=== PATIENT | male | born 1965 | race Caucasian/White ===

== ENCOUNTER 2017-01-24 17:26 | Emergency (ER) | payer OTHER ==
[2017-01-24] MEDS ORDERED: Haloperidol INJ IV/IM* 5 MG/ML AMP IM ONE (17:48)
[2017-01-24] MEDS ORDERED: diPHENhydraMINE IV* 50 MG/ML 1 ml VIAL (BENADRYL) IM ONE (17:49)
[2017-01-24] MEDS ORDERED: LORazepam INJ* 2 MG/ML 1 ML VIAL IV PUSH ONE (17:49)
[2017-01-24] MEDS ORDERED: Haloperidol INJ IV/IM* 5 MG/ML AMP ONE (17:50)
[2017-01-24] MEDS ORDERED: diPHENhydraMINE IV* 50 MG/ML 1 ml VIAL (BENADRYL) ONE (17:50)
[2017-01-24] MEDS ORDERED: LORazepam INJ* 2 MG/ML 1 ML VIAL ONE (17:50)
[2017-01-24 18:29] LABS: Hematocrit 45 % (42-52); Mean Corpuscular HGB Conc 34 g/dl (31-36); Mean Corpuscular Hemoglobin 30 pg (27-31); Mean Corpuscular Volume 90 fL (80-94); Mean Platelet Volume 7 um3 (7.4-10.4); Red Blood Count 4.97 10^6/ul (4.0-5.4); Red Cell Distribution Width 14 % (10.5-15); White Blood Count 11.5 10^3/ul (3.5-10.8)
[2017-01-24 18:42] LABS: ALT 13 U/L (7-52); AST 18 U/L (13-39); Albumin 4.4 g/dL (3.2-5.2); Alkaline Phosphatase 45 U/L (34-104); Anion Gap 13 mmol/L (2-11); BUN/Creatinine Ratio 9.8 (8-20); Blood Urea Nitrogen 13 mg/dL (6-24); CO2 Carbon Dioxide 22 mmol/L (22-32); Calcium 9.2 mg/dL (8.6-10.3); Chloride 101 mmol/L (101-111); EGFR African American 73.2 (>60); EGFR Non-African American 56.9 (>60); Globulin 2.8 g/dL (2-4); Glucose 120 mg/dL (70-100); Potassium 3.4 mmol/L (3.5-5.0); Sodium 136 mmol/L (133-145); Total Protein 7.2 g/dL (6.4-8.9)
[2017-01-24 19:05] LABS: Acetaminophen < 15 mcg/mL; Alcohol 350 mg/dL (<10); Salicylate < 2.50 mg/dL (<30)
[2017-01-24 19:15] LABS: TSH (Thyroid Stimulating Horm) 1.96 mcIU/mL (0.34-5.60)
[2017-01-24] MEDS: NS 0.9% 1000 ML* 2,000 ML IV ONE ×2 (19:36→22:16)
[2017-01-24 21:22] LABS: Urine Bacteria Absent (Absent); Urine Bilirubin Negative (Negative); Urine Glucose Negative (Negative); Urine Nitrite Negative (Negative)
[2017-01-24 21:32] LABS: Benzodiazepine Urine Screen None Detected (None Detect)
--- NOTE | 2017-01-24 22:48 | ED ---
Chikis Richardson Michael, scribed for Danny Elliott MD on 01/24/17 at 1757 . Altered Mental Status - HPI Summary HPI Summary: 51 y/o male was brought to the ED by police on 2208 for disorderly conduct in a store today. Per police report, since the recent of the pt's mother, his emotions have varied from anger and sadness. Pt states he has significant mental health hx and stated vague references to SI. Pt reports he wants a MHE per police report. Upon consultation with pt, he was aggressive and noncompliant. - History Of Current Complaint Chief Complaint: EDSubstanceAbuse Stated Complaint: MHE Time Seen by Provider: 01/24/17 17:41 Hx Obtained From: EMS, Medical Records, Other: - police report Onset/Duration: Still Present Timing: Constant Severity Initially: Moderate Severity Currently: Moderate Character: Agitation - aggressive Aggravating Factor(s): Other - mother's Alleviating Factor(s): Nothing Associated Signs And Symptoms: Negative: Negative - aggression/agitation. - Allergies/Home Medications Allergies/Adverse Reactions: Allergies Allergy/AdvReac Type Severity Reaction Status Date / Time Lovastatin Allergy Unknown Rhabdomyoly Verified 12/19/15 17:46 sis Horse-derived Products Allergy Unknown Verified 12/19/15 17:46 Reaction Details Lactase Allergy Nausea And Verified 03/31/16 15:14 Vomiting Milk-related Compounds Allergy See Comment Verified 12/23/15 17:33 PMH/Surg Hx/FS Hx/Imm Hx Endocrine/Hematology History: Reports: Hx Thyroid Disease Denies: Hx Diabetes Cardiovascular History: Reports: Hx Hypercholesterolemia, Hx Hypertension - ON MEDICATION FOR Denies: Hx Pacemaker/ICD GI History: Reports: Hx Gastroesophageal Reflux Disease, Hx Irritable Bowel History: Reports: Hx Acute Renal Failure, Other Problems/Disorders - Pt states "kidneys have shut down before" Denies: Hx Renal Disease Musculoskeletal History: Reports: Hx Arthritis - OSTEOARTHRITIS, Hx Back Problems - PT ON CHRONIC DISABILITY DUE TO CHRONIC BACK/PAIN ISSUES, Hx Orthopedic Injury, Hx Tendonitis, Other Musculoskeletal History - HERNIA REPAIR Sensory History: Reports: Hx Contacts or Glasses Denies: Hx Hearing Aid Opthamlomology History: Reports: Hx Contacts or Glasses Neurological History: Reports: Hx Headaches, Hx Nerve Disease - on NEURONTIN, Hx Seizures, Other Neuro Impairments/Disorders Psychiatric History: Reports: Hx Anxiety, Hx Depression, Hx Inpatient Treatment , Hx Community Mental Health Tx, Hx Suicide Attempt - "Pt states overdosing and trying to cut himself", Hx of Violent Episodes Against Others, Hx Substance Abuse, Other Psychiatric Issues/Disorders - Hx of hurting himself "with pushpins " Denies: Hx Eating Disorder, Hx Panic Disorder - Surgical History Surgery Procedure, Year, and Place: Hernia repair Hx Anesthesia Reactions: No - Immunization History Date of Tetanus Vaccine: unknown Infectious Disease History: No Infectious Disease History: Reports: Hx of Known/Suspected MRSA Denies: Traveled Outside the [place] in Last 30 Days - Family History Family History: FHx of depression - Mother. FHx of alcohol abuse - paternal aunt - Social History Occupation: Unemployed Lives: With Family Alcohol Use: Other Alcohol Amount: currently intoxicated Hx Substance Use: Yes - Presribed narcotics Substance Use Type: Reports: Cocaine, Sedatives Substance Use Comment - Amount & Last Used: Previous hx of cocaine and IV drugs Hx Tobacco Use: Yes Smoking Status (MU): Current Every Day Smoker Type: Cigarettes Amount Used/How Often: 1/2 PPD Length of Time of Smoking/Using Tobacco: 30YRS Have You Smoked in the Last Year: Yes Review of Systems Negative: Fever Positive: Other - aggressive All Other Systems Reviewed And Are Negative: Yes Physical Exam Triage Information Reviewed: Yes Vital Signs On Initial Exam: Initial Vitals Temp Pulse Resp BP Pulse Ox 98.4 F 123 18 95/58 96 01/24/17 17:40 01/24/17 17:40 01/24/17 17:40 01/24/17 17:40 01/24/17 17:40 Vital Signs Reviewed: Yes Skin: Positive: Warm, Skin Color Reflects Adequate Perfusion Head/Face: Positive: Normal Head/Face Inspection Eyes: Positive: Normal, EOMI ENT: Positive: Normal ENT inspection Neck: Positive: Supple, Nontender Respiratory/Lung Sounds: Positive: Clear to Auscultation, Breath Sounds Present Cardiovascular: Positive: Normal, RRR. Negative: Murmur Abdomen Description: Positive: Nontender Musculoskeletal: Positive: Normal Neurological: Positive: Normal, Sensory/Motor Intact, Alert, Oriented to Person Place, Time, CN Intact II-III Psychiatric: Positive: Other - beligerant and angry and hostile, threatening. Diagnostics - Vital Signs Vital Signs Temp Pulse Resp BP Pulse Ox 01/24/17 17:40 98.4 F 123 18 95/58 96 - Laboratory Lab Results: Lab Results 01/24/17 01/24/17 Range/Units 18:15 18:15 WBC 11.5 H (3.5-10.8) 10^3/ul RBC 4.97 (4.0-5.4) 10^6/ul Hgb 15.0 (14.0-18.0) g/dl Hct 45 (42-52) % MCV 90 (80-94) fL MCH 30 (27-31) pg MCHC 34 (31-36) g/dl RDW 14 (10.5-15) % Plt Count 308 (150-450) 10^3/ul MPV 7 L (7.4-10.4) um3 Neut % (Auto) 61.7 (38-83) % Lymph % (Auto) 28.4 (25-47) % [place] % (Auto) 7.4 (1-9) % Eos % (Auto) 1.4 (0-6) % Baso % (Auto) 1.1 (0-2) % Absolute Neuts (auto) 7.1 (1.5-7.7) 10^3/ul Absolute Lymphs (auto) 3.3 (1.0-4.8) 10^3/ul Absolute Monos (auto) 0.9 H (0-0.8) 10^3/ul Absolute Eos (auto) 0.2 (0-0.6) 10^3/ul Absolute Basos (auto) 0.1 (0-0.2) 10^3/ul Absolute Nucleated RBC 0.01 10^3/ul Nucleated RBC % 0.1 Sodium 136 (133-145) mmol/L Potassium 3.4 L (3.5-5.0) mmol/L Chloride 101 (101-111) mmol/L Carbon Dioxide 22 (22-32) mmol/L Anion Gap 13 H (2-11) mmol/L BUN 13 (6-24) mg/dL Creatinine 1.33 H (0.67-1.17) mg/dL Est GFR ( Amer) 73.2 (>60) Est GFR (Non-Af Amer) 56.9 (>60) BUN/Creatinine Ratio 9.8 (8-20) Glucose 120 H (70-100) mg/dL Calcium 9.2 (8.6-10.3) mg/dL Total Bilirubin 0.40 (0.2-1.0) mg/dL AST 18 (13-39) U/L ALT 13 (7-52) U/L Alkaline Phosphatase 45 (34-104) U/L Total Protein 7.2 (6.4-8.9) g/dL Albumin 4.4 (3.2-5.2) g/dL Globulin 2.8 (2-4) g/dL Albumin/Globulin Ratio 1.6 (1-3) TSH 1.96 (0.34-5.60) mcIU/mL Salicylates < 2.50 (<30) mg/dL Acetaminophen < 15 mcg/mL Serum Alcohol 350 H (<10) mg/dL Result Diagrams: 01/24/17 18:15 01/24/17 18:15 Lab Statement: Any lab studies that have been ordered have been reviewed, and results considered in the medical decision making process. - EKG EKG 2036 EKG Rhythm: Sinus Rhythm - 91 bpm EKG Interpretation: no stemi Re-Evaluation - Re-Evaluation First Eval Re-Evaluation Time: 19:00 Change: Improved - resting comfortably, with sats in the mid 90s. will hydrate , and get urine on him. His BP is a little low, but he has etoh aboard and was sedated due to danger to self and others. Will get EKG and urine done now that he is sedated. Second Eval Re-Evaluation Time: 22:46 Change: Improved Comment: walked to bathroom, and cooperative. BP stable Altered Mental Statu Course/Dx - Course Course Of Treatment: 51 yr old male intoxicated. He was very hositle and per police expressed suicidal ideation. He was sedated and four pointed. He is clear for MHE. - Diagnoses Discharge Diagnoses: Alcohol intoxication, Suicidal ideation Discharge - Discharge Plan Condition: Good Disposition: OTHER Discharge Disposition Comment: awaits psych eval, and sobering up. Sign out Dr Dial at 2300. The documentation as recorded by the Chikis crawford Michael accurately reflects the service I personally performed and the decisions made by me, Danny Elliott MD.
[2017-01-25 02:36] VITALS: BP 108/76
[2017-01-25] MEDS ORDERED: Nicotine Inhaler* 10 MG AMP ONE (05:57)
[2017-01-25] MEDS ORDERED: Mouth Piece, Nicotine* 1 EACH CARTRIDGE ONE (05:57)
[2017-01-25] MEDS ORDERED: levETIRAcetam TAB* 500 MG PO ONE (06:09)
== END 2017-01-25 08:05 | disposition home or self-care (01) ==
LOC: ED 17:26
DX: R45.851 Suicidal ideations (principal); F10.129 Alcohol abuse with intoxication, unspecified; Z88.6 Allergy status to analgesic agent; I10 Essential (primary) hypertension; E78.00 Pure hypercholesterolemia, unspecified; F17.290 Nicotine dependence, other tobacco product, uncomplicated
CPT/HCPCS: 36415; 80053; 80307; 80320; 80329; 81003; 81015; 84443; 85025; 93005; 99285; A9270-GY; G0480; J1200; J1630; J2060

== ENCOUNTER 2017-01-27 02:17 | Emergency (ER) | payer OTHER ==
[2017-01-27 03:12] LABS: Hematocrit 44 % (42-52); Hemoglobin 14.7 g/dl (14.0-18.0); Mean Corpuscular HGB Conc 34 g/dl (31-36); Mean Corpuscular Hemoglobin 30 pg (27-31); Mean Corpuscular Volume 90 fL (80-94); Mean Platelet Volume 7 um3 (7.4-10.4); Red Blood Count 4.86 10^6/ul (4.0-5.4); Red Cell Distribution Width 14 % (10.5-15); White Blood Count 8.2 10^3/ul (3.5-10.8)
[2017-01-27 03:24] LABS: Albumin 4.1 g/dL (3.2-5.2); BUN/Creatinine Ratio 7.1 (8-20); Calcium 9.1 mg/dL (8.6-10.3); EGFR African American 122.7 (>60); EGFR Non-African American 95.4 (>60); Globulin 2.6 g/dL (2-4); Potassium 3.7 mmol/L (3.5-5.0); Total Bilirubin 0.9 mg/dL (0.2-1.0); Total Protein 6.7 g/dL (6.4-8.9)
[2017-01-27 04:18] VITALS: BP 161/96
--- NOTE | 2017-01-27 04:45 | ED ---
Luiz Richardson Adam, scribed for Leander Harris MD on 01/27/17 at 0241 . Neurological HPI - HPI Summary HPI Summary: Pt is a 51 year old male presenting after a seizure. He does not remember where he was when the seizure set on and he does not remember any details from before , during, or after the seizure. He denies any evidence of tongue biting or urinary incontinence. He currently feels tired and hot. He denies CP, SOB, fever , and chills. He has a hx of seizures and takes Keppra. He does not remember when his last seizure was prior to tonight. Positive tobacco hx. - History of Current Complaint Chief Complaint: EDSeizure Stated Complaint: SEIZURES Hx Obtained From: Patient Onset/Duration: Sudden Onset, Started hours ago, Resolved Timing: Intermittent Episodes Lasting: - 1 seizure lasting unknown amount of time Current Severity: None Seizure Severity: Moderate Number of Seizures: 1 Pain Intensity: 0 Aggravating: Unknown Alleviating: Spontanious Resolution Associated Signs and Symptoms: Positive: Memory Loss - Fatigue, feeling hot. Negative: Fever, Chest Pain, Shortness of Breath Related Hx: Seizure - Additional Pertinent History Primary Care Physician: [id number] - Allergy/Home Medications Allergies/Adverse Reactions: Allergies Allergy/AdvReac Type Severity Reaction Status Date / Time Lovastatin Allergy Unknown Rhabdomyoly Verified 12/19/15 17:46 sis Horse-derived Products Allergy Unknown Verified 12/19/15 17:46 Reaction Details Lactase Allergy Nausea And Verified 03/31/16 15:14 Vomiting Milk-related Compounds Allergy See Comment Verified 12/23/15 17:33 PMH/Surg Hx/FS Hx/Imm Hx Endocrine/Hematology History: Reports: Hx Thyroid Disease Denies: Hx Diabetes Cardiovascular History: Reports: Hx Hypercholesterolemia, Hx Hypertension - ON MEDICATION FOR Denies: Hx Pacemaker/ICD GI History: Reports: Hx Gastroesophageal Reflux Disease, Hx Irritable Bowel History: Reports: Hx Acute Renal Failure, Other Problems/Disorders - Pt states "kidneys have shut down before" Denies: Hx Renal Disease Musculoskeletal History: Reports: Hx Arthritis - OSTEOARTHRITIS, Hx Back Problems - PT ON CHRONIC DISABILITY DUE TO CHRONIC BACK/PAIN ISSUES, Hx Orthopedic Injury, Hx Tendonitis, Other Musculoskeletal History - HERNIA REPAIR Sensory History: Reports: Hx Contacts or Glasses Denies: Hx Hearing Aid Opthamlomology History: Reports: Hx Contacts or Glasses Neurological History: Reports: Hx Headaches, Hx Nerve Disease - on NEURONTIN, Hx Seizures, Other Neuro Impairments/Disorders Psychiatric History: Reports: Hx Anxiety, Hx Depression, Hx Inpatient Treatment , Hx Community Mental Health Tx, Hx Suicide Attempt - "Pt states overdosing and trying to cut himself", Hx of Violent Episodes Against Others, Hx Substance Abuse, Other Psychiatric Issues/Disorders - Hx of hurting himself "with pushpins " Denies: Hx Eating Disorder, Hx Panic Disorder - Surgical History Surgery Procedure, Year, and Place: Hernia repair Hx Anesthesia Reactions: No - Immunization History Date of Tetanus Vaccine: unknown Infectious Disease History: No Infectious Disease History: Reports: Hx of Known/Suspected MRSA Denies: Traveled Outside the [place] in Last 30 Days - Family History Known Family History: Positive: Other - FHx of depression - Mother - Social History Occupation: Unemployed Lives: With Family - Female friend Alcohol Use: Occasionally Hx Substance Use: Yes - Presribed narcotics Substance Use Type: Reports: Cocaine, Sedatives Substance Use Comment - Amount & Last Used: Previous hx of cocaine and IV drugs Hx Tobacco Use: Yes Smoking Status (MU): Current Every Day Smoker Type: Cigarettes Amount Used/How Often: 1/2 PPD Length of Time of Smoking/Using Tobacco: 30YRS Have You Smoked in the Last Year: Yes Review of Systems Positive: Fatigue, Other - Feels hot. Negative: Fever, Chills Negative: Chest Pain Negative: Shortness Of Breath Negative: incontinence Skin: Negative Neurological: Other - Seizure All Other Systems Reviewed And Are Negative: Yes Physical Exam - Summary Physical Exam Summary: The patient is well-nourished in no acute distress and in no acute pain. The skin is warm and dry and skin color reflects adequate perfusion. HEENT: The head is normocephalic and atraumatic. No evidence of skull fracture. The pupils are equal and reactive. The conjunctivae are clear and without drainage. Nares are patent and without drainage. Mouth reveals moist mucous membranes and the throat is without erythema and exudate. The external ears are intact. The ear canals are patent and without drainage. The tympanic membranes are intact. No hemotympanum. Neck is supple with full range of motion and non-tender. There are no carotid bruits. There is no neck vein distension. Respiratory: Chest is non-tender. Lungs are clear to auscultation and breath sounds are symmetrical and equal. Cardiovascular: Heart is regular rate and rhythm. There is no murmur or rub auscultated. There is no peripheral edema and pulses are symmetrical and equal. Abdomen: The abdomen is soft and non-tender. There are normal bowel sounds heard in all four quadrants and there is no organomegaly palpated. Musculoskeletal: There is no back pain noted. Extremities are non-tender with full range of motion. There is good capillary refill. There is no peripheral edema or calf tenderness elicited. Neurological: Patient is alert and oriented to person, place and time. The patient has symmetrical motor strength in all four extremities. Cranial nerves are grossly intact. Deep tendon reflexes are symmetrical and equal in all four extremities. Psychiatric: The patient has an appropriate affect and does not exhibit any anxiety or depression. Triage Information Reviewed: Yes Vital Signs On Initial Exam: Initial Vitals Temp Pulse Resp BP Pulse Ox 98.5 F 98 21 147/96 97 01/27/17 02:33 01/27/17 02:33 01/27/17 02:33 01/27/17 02:33 01/27/17 02:33 Vital Signs Reviewed: Yes Diagnostics - Vital Signs Vital Signs Temp Pulse Resp BP Pulse Ox 01/27/17 02:34 98.5 F 98 21 147/96 97 01/27/17 02:33 98.5 F 98 21 147/96 97 - Laboratory Lab Results: Lab Results 01/27/17 01/27/17 01/27/17 Range/Units 02:30 02:30 02:30 WBC 8.2 (3.5-10.8) 10^3/ul RBC 4.86 (4.0-5.4) 10^6/ul Hgb 14.7 (14.0-18.0) g/dl Hct 44 (42-52) % MCV 90 (80-94) fL MCH 30 (27-31) pg MCHC 34 (31-36) g/dl RDW 14 (10.5-15) % Plt Count 252 (150-450) 10^3/ul MPV 7 L (7.4-10.4) um3 Neut % (Auto) 65.6 (38-83) % Lymph % (Auto) 22.0 L (25-47) % [place] % (Auto) 7.9 (1-9) % Eos % (Auto) 3.7 (0-6) % Baso % (Auto) 0.8 (0-2) % Absolute Neuts (auto) 5.4 (1.5-7.7) 10^3/ul Absolute Lymphs (auto) 1.8 (1.0-4.8) 10^3/ul Absolute Monos (auto) 0.6 (0-0.8) 10^3/ul Absolute Eos (auto) 0.3 (0-0.6) 10^3/ul Absolute Basos (auto) 0.1 (0-0.2) 10^3/ul Absolute Nucleated RBC 0.01 10^3/ul Nucleated RBC % 0.1 INR (Anticoag Therapy) 0.92 (0.89-1.11) Sodium 138 (133-145) mmol/L Potassium 3.7 (3.5-5.0) mmol/L Chloride 106 (101-111) mmol/L Carbon Dioxide 21 L (22-32) mmol/L Anion Gap 11 (2-11) mmol/L BUN 6 (6-24) mg/dL Creatinine 0.85 (0.67-1.17) mg/dL Est GFR ( Amer) 122.7 (>60) Est GFR (Non-Af Amer) 95.4 (>60) BUN/Creatinine Ratio 7.1 L (8-20) Glucose 132 H (70-100) mg/dL Lactic Acid (0.5-2.0) mmol/L Calcium 9.1 (8.6-10.3) mg/dL Magnesium 2.0 (1.9-2.7) mg/dL Total Bilirubin 0.90 (0.2-1.0) mg/dL AST 27 (13-39) U/L ALT 17 (7-52) U/L Alkaline Phosphatase 52 (34-104) U/L Total Protein 6.7 (6.4-8.9) g/dL Albumin 4.1 (3.2-5.2) g/dL Globulin 2.6 (2-4) g/dL Albumin/Globulin Ratio 1.6 (1-3) 01/27/17 Range/Units 02:30 WBC (3.5-10.8) 10^3/ul RBC (4.0-5.4) 10^6/ul Hgb (14.0-18.0) g/dl Hct (42-52) % MCV (80-94) fL MCH (27-31) pg MCHC (31-36) g/dl RDW (10.5-15) % Plt Count (150-450) 10^3/ul MPV (7.4-10.4) um3 Neut % (Auto) (38-83) % Lymph % (Auto) (25-47) % [place] % (Auto) (1-9) % Eos % (Auto) (0-6) % Baso % (Auto) (0-2) % Absolute Neuts (auto) (1.5-7.7) 10^3/ul Absolute Lymphs (auto) (1.0-4.8) 10^3/ul Absolute Monos (auto) (0-0.8) 10^3/ul Absolute Eos (auto) (0-0.6) 10^3/ul Absolute Basos (auto) (0-0.2) 10^3/ul Absolute Nucleated RBC 10^3/ul Nucleated RBC % INR (Anticoag Therapy) (0.89-1.11) Sodium (133-145) mmol/L Potassium (3.5-5.0) mmol/L Chloride (101-111) mmol/L Carbon Dioxide (22-32) mmol/L Anion Gap (2-11) mmol/L BUN (6-24) mg/dL Creatinine (0.67-1.17) mg/dL Est GFR ( Amer) (>60) Est GFR (Non-Af Amer) (>60) BUN/Creatinine Ratio (8-20) Glucose (70-100) mg/dL Lactic Acid 5.8 H* (0.5-2.0) mmol/L Calcium (8.6-10.3) mg/dL Magnesium (1.9-2.7) mg/dL Total Bilirubin (0.2-1.0) mg/dL AST (13-39) U/L ALT (7-52) U/L Alkaline Phosphatase (34-104) U/L Total Protein (6.4-8.9) g/dL Albumin (3.2-5.2) g/dL Globulin (2-4) g/dL Albumin/Globulin Ratio (1-3) Result Diagrams: 01/27/17 02:30 01/27/17 02:30 Lab Statement: Any lab studies that have been ordered have been reviewed, and results considered in the medical decision making process. - EKG 02:24 Cardiac Rate: Tachycardia - 106 BPM EKG Rhythm: Sinus Tachycardia ST Segment: Normal EKG Interpretation: Normal axis - Additional Comments Diagnostic Additional Comments: Lactic Acid - 5.8 Course/Dx - Course Course Of Treatment: Elevated lactate and low CO2 most likely correlate with seizure. Pt has no complaints. He is tired and wants to go home. He has been instructed to continue with his current medications and follow up with Dr. Collins. - Differential Dx Differential Diagnoses Neuro: Positive: Hypoglycemia, Postical, Seizure Disorder - Diagnoses Provider Diagnoses: Syncope, Seizure disorder Discharge - Discharge Plan Condition: Stable Disposition: HOME Patient Education Materials: Syncope (ED), Recurrent Seizures in Adults (ED) Referrals: Carlos Collins MD [Primary Care Provider] - Additional Instructions: Continue with your current medications and follow up with Dr. Collins. The documentation as recorded by the Luiz crawford Adam accurately reflects the service I personally performed and the decisions made by me, Leander Harris MD.
== END 2017-01-27 04:19 | disposition home or self-care (01) ==
LOC: ED 02:17
DX: R55 Syncope and collapse (principal); G40.909 Epilepsy, unspecified, not intractable, without status epilepticus; R53.83 Other fatigue; R41.3 Other amnesia; F17.210 Nicotine dependence, cigarettes, uncomplicated
CPT/HCPCS: 36415; 80053; 80177; 83605; 83735; 85025; 85610; 99283

== ENCOUNTER → 2017-02-19 21:48 | Emergency (ER) | payer OTHER ==
[~2017-02-19 21:48] MED LIST: Haloperidol INJ IV/IM* 5 MG/ML AMP IM ONE; LORazepam INJ* 2 MG/ML 1 ML VIAL IM ONE; diPHENhydraMINE IV* 50 MG/ML 1 ml VIAL (BENADRYL) IM ONE
[2017-02-19 22:23] LABS: Hematocrit 45 % (42-52); Mean Corpuscular HGB Conc 34 g/dl (31-36); Mean Corpuscular Hemoglobin 30 pg (27-31); Mean Corpuscular Volume 89 fL (80-94); Mean Platelet Volume 7 um3 (7.4-10.4); Red Cell Distribution Width 14 % (10.5-15); White Blood Count 9.4 10^3/ul (3.5-10.8)
[2017-02-19 22:37] LABS: ALT 15 U/L (7-52); AST 20 U/L (13-39); Albumin 4.4 g/dL (3.2-5.2); Alkaline Phosphatase 49 U/L (34-104); Anion Gap 15 mmol/L (2-11); BUN/Creatinine Ratio 10.3 (8-20); Blood Urea Nitrogen 10 mg/dL (6-24); CO2 Carbon Dioxide 18 mmol/L (22-32); Chloride 106 mmol/L (101-111); EGFR African American 105.4 (>60); EGFR Non-African American 81.9 (>60); Glucose 116 mg/dL (70-100); Potassium 3.6 mmol/L (3.5-5.0); Sodium 139 mmol/L (133-145); Total Protein 7.4 g/dL (6.4-8.9)
[2017-02-19 22:57] LABS: Urine Bilirubin Negative (Negative); Urine Glucose Negative (Negative); Urine Nitrite Negative (Negative)
--- NOTE | 2017-02-19 23:02 | ED ---
Raven Richardson Erika, scribed for Corey Rodríguez MD on 02/19/17 at 2222 . Psychiatric Complaint - HPI Summary HPI Summary: Patient is a 51-year-old male BIB police to the ED as a 941. They report patient was aggressive and trying to start fights with groups of people downtown. Pt is intoxicated, and states he said something rude to the police which is why he was brought in. Pt currently denies SI. - History Of Current Complaint Chief Complaint: EDMentalHealth Time Seen by Provider: 02/19/17 22:10 Accompanied By: Alone Hx Obtained From: Patient, Other: - Police Onset/Duration: Gradual Onset, Lasting Hours, Still Present Timing: Constant Severity Currently: Moderate Character: Angry, Stuporous Aggravating Factor(s): Alcohol Use Alleviating Factor(s): Nothing Associated Signs And Symptoms: Positive: Hostile Related History: Positive For: Prior Psychiatric Issues Has Suicidal: Denies: Thoughts - Allergies/Home Medications Allergies/Adverse Reactions: Allergies Allergy/AdvReac Type Severity Reaction Status Date / Time Lovastatin Allergy Unknown Rhabdomyoly Verified 12/19/15 17:46 sis Horse-derived Products Allergy Unknown Verified 12/19/15 17:46 Reaction Details Lactase Allergy Nausea And Verified 03/31/16 15:14 Vomiting Milk-related Compounds Allergy See Comment Verified 12/23/15 17:33 PMH/Surg Hx/FS Hx/Imm Hx Endocrine/Hematology History: Reports: Hx Thyroid Disease Denies: Hx Diabetes Cardiovascular History: Reports: Hx Hypercholesterolemia, Hx Hypertension - ON MEDICATION FOR Denies: Hx Pacemaker/ICD GI History: Reports: Hx Gastroesophageal Reflux Disease, Hx Irritable Bowel History: Reports: Hx Acute Renal Failure, Other Problems/Disorders - Pt states "kidneys have shut down before" Denies: Hx Renal Disease Musculoskeletal History: Reports: Hx Arthritis - OSTEOARTHRITIS, Hx Back Problems - PT ON CHRONIC DISABILITY DUE TO CHRONIC BACK/PAIN ISSUES, Hx Orthopedic Injury, Hx Tendonitis, Other Musculoskeletal History - HERNIA REPAIR Sensory History: Reports: Hx Contacts or Glasses Denies: Hx Hearing Aid Opthamlomology History: Reports: Hx Contacts or Glasses Neurological History: Reports: Hx Headaches, Hx Nerve Disease - on NEURONTIN, Hx Seizures, Other Neuro Impairments/Disorders Psychiatric History: Reports: Hx Anxiety, Hx Depression, Hx Inpatient Treatment , Hx Community Mental Health Tx, Hx Suicide Attempt - "Pt states overdosing and trying to cut himself", Hx of Violent Episodes Against Others, Hx Substance Abuse, Other Psychiatric Issues/Disorders - Hx of hurting himself "with pushpins " Denies: Hx Eating Disorder, Hx Panic Disorder - Surgical History Surgery Procedure, Year, and Place: Hernia repair Hx Anesthesia Reactions: No - Immunization History Date of Tetanus Vaccine: unknown Infectious Disease History: Yes Infectious Disease History: Reports: Hx of Known/Suspected MRSA Denies: Traveled Outside the [place] in Last 30 Days - Family History Family History: FHx of depression - Mother. FHx of alcohol abuse - paternal aunt - Social History Alcohol Use: Occasionally Alcohol Amount: currently intoxicated Hx Substance Use: Yes - Presribed narcotics Substance Use Type: Reports: Cocaine, Sedatives Substance Use Comment - Amount & Last Used: Previous hx of cocaine and IV drugs Hx Tobacco Use: Yes Smoking Status (MU): Current Every Day Smoker Type: Cigarettes Amount Used/How Often: 1/2 PPD Length of Time of Smoking/Using Tobacco: 30YRS Have You Smoked in the Last Year: Yes Review of Systems Negative: Fever Positive: Arthralgia - L shoulder Neurological: Other - intoxicated Psychological: Other - angry All Other Systems Reviewed And Are Negative: Yes Physical Exam Triage Information Reviewed: Yes Vital Signs On Initial Exam: Initial Vitals Temp Pulse Resp BP Pulse Ox 97.9 F 98 17 134/86 95 02/19/17 21:53 02/19/17 21:53 02/19/17 21:53 02/19/17 21:53 02/19/17 21:53 Vital Signs Reviewed: Yes Appearance: Positive: Well-Appearing, No Pain Distress. Negative: Signs of Trauma Skin: Positive: Warm, Skin Color Reflects Adequate Perfusion, Dry Head/Face: Positive: Normal Head/Face Inspection Eyes: Positive: Normal ENT: Positive: Normal ENT inspection Neck: Positive: Supple, Nontender Respiratory/Lung Sounds: Positive: Clear to Auscultation, Breath Sounds Present Cardiovascular: Positive: RRR Abdomen Description: Positive: Nontender, Soft Bowel Sounds: Positive: Present Musculoskeletal: Positive: Normal Neurological: Positive: Normal Psychiatric: Positive: Other - Angry affect - [place] Coma Scale Coma Scale Total: 15 Diagnostics - Vital Signs Vital Signs Temp Pulse Resp BP Pulse Ox 02/19/17 21:58 97.8 F 95 17 134/86 95 05/17/17 21:53 97.9 F 98 134 95 - Laboratory Lab Results: Lab Results 02/19/17 02/19/17 02/19/17 Range/Units 22:13 22:13 22:45 WBC 9.4 (3.5-10.8) 10^3/ul RBC 5.00 (4.0-5.4) 10^6/ul Hgb 15.0 (14.0-18.0) g/dl Hct 45 (42-52) % MCV 89 (80-94) fL MCH 30 (27-31) pg MCHC 34 (31-36) g/dl RDW 14 (10.5-15) % Plt Count 292 (150-450) 10^3/ul MPV 7 L (7.4-10.4) um3 Neut % (Auto) 51.7 (38-83) % Lymph % (Auto) 38.3 (25-47) % [place] % (Auto) 6.2 (1-9) % Eos % (Auto) 1.9 (0-6) % Baso % (Auto) 1.9 (0-2) % Absolute Neuts (auto) 4.8 (1.5-7.7) 10^3/ul Absolute Lymphs (auto) 3.6 (1.0-4.8) 10^3/ul Absolute Monos (auto) 0.6 (0-0.8) 10^3/ul Absolute Eos (auto) 0.2 (0-0.6) 10^3/ul Absolute Basos (auto) 0.2 (0-0.2) 10^3/ul Absolute Nucleated RBC 0 10^3/ul Nucleated RBC % 0 Sodium 139 (133-145) mmol/L Potassium 3.6 (3.5-5.0) mmol/L Chloride 106 (101-111) mmol/L Carbon Dioxide 18 L (22-32) mmol/L Anion Gap 15 H (2-11) mmol/L BUN 10 (6-24) mg/dL Creatinine 0.97 (0.67-1.17) mg/dL Est GFR ( Amer) 105.4 (>60) Est GFR (Non-Af Amer) 81.9 (>60) BUN/Creatinine Ratio 10.3 (8-20) Glucose 116 H (70-100) mg/dL Calcium 9.0 (8.6-10.3) mg/dL Total Bilirubin 0.30 (0.2-1.0) mg/dL AST 20 (13-39) U/L ALT 15 (7-52) U/L Alkaline Phosphatase 49 (34-104) U/L Total Protein 7.4 (6.4-8.9) g/dL Albumin 4.4 (3.2-5.2) g/dL Globulin 3.0 (2-4) g/dL Albumin/Globulin Ratio 1.5 (1-3) TSH Pending Urine Color Straw Urine Appearance Clear Urine pH 6.0 (5-9) Ur Specific [place] 1.004 L (1.010-1.030) Urine Protein Negative (Negative) Urine Ketones Negative (Negative) Urine Blood Negative (Negative) Urine Nitrate Negative (Negative) Urine Bilirubin Negative (Negative) Urine Urobilinogen Negative (Negative) Ur Leukocyte Esterase Negative (Negative) Urine Glucose Negative (Negative) Salicylates Pending Acetaminophen Pending Serum Alcohol Pending Result Diagrams: 02/19/17 22:13 02/19/17 22:13 Lab Statement: Any lab studies that have been ordered have been reviewed, and results considered in the medical decision making process. Course/Dx - Course Course Of Treatment: Mr. Jay continued his aggressive behavior here in the ED and had to be chemically sedated for his own good as well as our safety. I was concerned that he would get more aggressive and require physical restraint. He is clearly intoxicated and we are waiting for him to sober up for a MHE. - Differential Dx/Clinical Impression Provider Diagnosis: Alcohol intoxication - Physician Notifications Discussed Care Of Patient With: Dr. Dee Discharge - Discharge Plan Condition: Stable Disposition: OTHER Discharge Disposition Comment: Change of shift The documentation as recorded by the Raven crawford Erika accurately reflects the service I personally performed and the decisions made by me, Corey Rodríguez MD.
[2017-02-20 02:15] VITALS: BP 127/60
[2017-02-20 03:03] LABS: Benzodiazepine Urine Screen None Detected (None Detect)
[2017-02-20 03:04] LABS: TSH (Thyroid Stimulating Horm) 2.02 mcIU/mL (0.34-5.60)
[2017-02-20 03:30] LABS: Acetaminophen < 15 mcg/mL; Alcohol 296 mg/dL (<10); Salicylate < 2.50 mg/dL (<30)
== END ==
LOC: ED 21:48
DX: F10.129 Alcohol abuse with intoxication, unspecified (principal)
CPT/HCPCS: 36415; 80053; 80307; 80320; 80329; 81003; 84443; 85025; 96372; 99282; G0480; J1200; J1630; J2060

== ENCOUNTER 2017-06-24 11:10 | Inpatient (IN) | payer OTHER ==
[2017-06-24 11:41] LABS: Hematocrit 35 % (42-52); Mean Corpuscular HGB Conc 34 g/dl (31-36); Mean Corpuscular Hemoglobin 32 pg (27-31); Mean Corpuscular Volume 93 fL (80-94); Mean Platelet Volume 6 um3 (7.4-10.4); Red Blood Count 3.79 10^6/ul (4.0-5.4); Red Cell Distribution Width 15 % (10.5-15)
--- NOTE | 2017-06-24 11:55 | RAD ---
INDICATION: Seizure, evaluate for aspiration. COMPARISON: Comparison is made with a prior study from June 13, 2015. TECHNIQUE: A portable view of the chest was obtained. FINDINGS: The heart appears mildly enlarged and unchanged. The lungs are underinflated and clear. No pleural effusion is seen. IMPRESSION: NO EVIDENCE FOR ACUTE DISEASE.
[2017-06-24] MEDS ORDERED: NS 0.9% 1000 ML*IV.FLUID IV ONE (11:56)
[2017-06-24] MEDS ORDERED: LORazepam INJ* 2 MG/ML 1 ML VIAL IV PUSH ONE ×2 (11:58→12:15)
[2017-06-24 11:59] LABS: ALT 17 U/L (7-52); AST 20 U/L (13-39); Albumin 4.1 g/dL (3.2-5.2); Alkaline Phosphatase 41 U/L (34-104); BUN/Creatinine Ratio 11.6 (8-20); Blood Urea Nitrogen 13 mg/dL (6-24); CO2 Carbon Dioxide 29 mmol/L (22-32); Calcium 10.2 mg/dL (8.6-10.3); Chloride 110 mmol/L (101-111); EGFR African American 89.3 (>60); EGFR Non-African American 69.4 (>60); Globulin 2.5 g/dL (2-4); Glucose 149 mg/dL (70-100); Magnesium 1.6 mg/dL (1.9-2.7); Potassium 3.7 mmol/L (3.5-5.0); Total Protein 6.6 g/dL (6.4-8.9)
[2017-06-24 12:03] LABS: Anion Gap 8 mmol/L (2-11); Sodium 147 mmol/L (133-145)
[2017-06-24] MEDS ORDERED: LORazepam INJ* 2 MG/ML 1 ML VIAL ONE (12:16)
[2017-06-24] MEDS ORDERED: levETIRAcetam IV* 500 MG/5 ML VIAL ONE (12:33)
[2017-06-24] MEDS ORDERED: Albuterol/Ipratropium NEB.SOL* Albuterol 2.5 MG/Ipratropium 0.5 MG 3 ML INH ONE (12:42)
--- NOTE | 2017-06-24 12:42 | RAD ---
Indication: Seizure, fall. CT of the brain was performed without IV contrast. The study is severely limited due to motion artifact. Ventricular structures are midline. No midline shift is noted. No gross hemorrhage is noted. Mastoid air cells and paranasal sinuses are grossly unremarkable. IMPRESSION: Motion artifact limits evaluation. No gross hemorrhage is noted.
--- NOTE | 2017-06-24 12:50 | RAD ---
INDICATION: Seizure, fall. COMPARISON: July 26, 2011 MRI. TECHNIQUE: Multidetector CT images foramen magnum to lung apices without contrast. Multiplanar reformation. REPORT: Normal vertebral alignment accounting for exam positioning without spondylolisthesis or subluxation at any level. Negative for cervical vertebral body or posterior element fracture. Negative for paravertebral hematoma. Diffuse advanced degenerative spondylosis and facet joint osteoarthritis with progression compared with the 2011 MRI. At C3-C4 uncinate process spurring and facet joint osteoarthritis results in moderate bilateral foraminal stenosis. At C4-C5 uncinate process spurring and facet joint osteoarthritis results in severe LEFT foraminal stenosis. At C5-C6 dorsal spondylitic ridging disc complex results in moderate acquired central canal stenosis and uncinate process spurring and facet joint osteoarthritis results in bilateral foraminal stenosis. At C6-C7 dorsal disc osteophyte complex results in moderate acquired central canal stenosis and uncinate process spurring and facet joint osteoarthritis results in moderate bilateral foraminal stenosis. At C7-T1 dorsal disc osteophyte complex results in mild acquired central canal stenosis and uncinate process spurring and facet joint osteoarthritis results in moderately severe RIGHT and mild LEFT foraminal stenosis. IMPRESSION: 1. No evidence for traumatic cervical spine injury. 2. Diffuse advanced degenerative spondylosis and facet joint osteoarthritis with resulting multilevel acquired spinal stenosis as described with progression of disease compared with the 2011 MRI.
[2017-06-24] MEDS ORDERED: Naloxone* 0.4 MG/ML 1 ML VIAL IV PUSH ONE (12:53)
[2017-06-24] MEDS ORDERED: Vancomycin(*) 1,500 MG in NS 0.9% 250 ML* 250 ML IVPB ONE (13:11)
[2017-06-24] MEDS ORDERED: NS 0.9% 1000 ML* 1,000 ML IV ONE ×2 (13:12→14:21)
[2017-06-24 13:54] LABS: PCO2 Arterial 52 mmHg (35-45)
[2017-06-24 14:00] LABS: Alcohol < 10 mg/dL (<10)
[2017-06-24 14:04] LABS: Urine Bilirubin Negative (Negative); Urine Glucose Negative (Negative); Urine Nitrite Negative (Negative)
[2017-06-24] MEDS ORDERED: Etomidate* 2 MG/ML 10 ML VIAL IV ONE (14:06)
[2017-06-24] MEDS ORDERED: Succinylcholine* 20 MG/ML 10 ML VIAL IV ONE (14:06)
[2017-06-24 14:12] LABS: Creatine Kinase 142 U/L (10-223)
[2017-06-24 14:24] LABS: Acetaminophen < 15 mcg/mL; Salicylate < 2.50 mg/dL (<30)
[2017-06-24 14:28] LABS: Benzodiazepine Urine Screen Presumptive Positive (None Detect)
--- NOTE | 2017-06-24 14:43 | HP ---
H&P (Free Text) History and Physical: CRITICAL CARE MEDICINE DATE: 06/24/17 TIME: 1345 REFERRING PROVIDER: Keo. REASON/CHIEF COMPLAINT: ?post ictal/seizure HISTORY OF PRESENT ILLNESS: 51 year old male with limited hisotry sec to acuity , apparnetly with last known well about 10pm last night, found today poorly responsive at home with EMS summonded. Concern for h/o substance abuse, ODs, seizure disorder presenting obtunded to ED. Maintaining vs with neuro consulted and plans for cEEG overnight at least. Was on keppra as outpt and 1G given in ED. EEG being placed now. Pt with bl ext movement with deep painful stimuli. Plan for intubation and ICU admission. REVIEW OF SYSTEMS: As per HPI. Limited sec to acuity. PAST MEDICAL HISTORY: As per HPI. Reviewed per system with multiple concerns for past rx overdoses, rhabdo, fibromyalgia, htn, lipids, tob use, depression, anxiety, dgd MEDICATIONS: Reviewed. ALLERGIES: Reviewed. SOCIAL HISTORY: Reviewed, as above. FAMILY HISTORY: Noncontributory at present. PHYSICAL EXAM: Vital Signs: Reviewed. HR tachy, tachypnic, maintaining sat with suppl O2. SBP 90s Neurologic: stupor. pupils eq and sluggish. not much gag. unable to make him cough. to deep painful stimuli he withdrawals but does not localize to site. HEENT: anicteric, tongue dry Cardiovascular: distant, reg Respiratory: prolonged exhalation and upper airway slight obstruction from self Abdomen: obese, soft Extremities: warm, disheveled Access: piv LABS: Reviewed. LA 2.8. tox pending IMAGING: Reviewed. CT without acute intracranial path. ECG with acute injury; NSR 1st degree AVB (old). CXR without acute dz but less volume then capacity MEDICATIONS: Reviewed. ASSESSMENT: 51 M with h/o overdose presenting on verge of metabolic coma, with severe encephalopathy and stupor. Question if SE or if potential post ictal state, with both high on diff dx, but metabolic/tox od high as well. PLAN: Neurologic: given stupor and poor airway reserve needs intubated. Neuro eval underway. cEEG tonight. already given keppra and can f/u further AED needs based on eeg. prn benzos. sedation tonight with prop as needed Cardiovascular: perfusing, but could remain with poor reserve. not much sympathetic HR drive but tachypnea in countering acid. can check gas but should be maintaining. IVF with NS and then LR. Respiratory: Airway. vent tonight with precautions. f/u tob use, copd ailments. Gastrointestinal: place ogt. npo tonight. sup. feeds tomorrow if needing vent longer Renal/Metabolic: LA will clear with fluids. acidosis ok. dunham and f/u uout Infectious Disease: recieved zosyn in ED for potential aspiration, but does not need continued abx at this time for such. mild reactive wbc Hematology: stable. hsq Endocrine: can check Tsh, glu ok and a little reactive Musculoskeletal: bedrest currently, skin precautions Psych/Social: social work eval Supportive and preventative care as ordered. Vaccine: f/u needs SUP: H2 VTE prophylaxis: heparin Dunham catheter given critical illness, monitoring needs for accurate assessment of ROSIE and KDIGO criteria for critically ill patients and to avoid potential harms of urinary retention, skin breakdown/ulcers. Disposition: ICU Code Status: Full Critical Care Time: 45min Ragini Dumont DO
[2017-06-24] MEDS: Propofol* 100 ML IV SCH ×2 (14:49→21:45)
[2017-06-24] MEDS ORDERED: Propofol* 100 ML IV SCH (15:00)
--- NOTE | 2017-06-24 15:00 | RAD ---
HISTORY: Intubation COMPARISONS: June 24, 2017 at 10:42 AM VIEWS: 1: frontal portable view of the chest at 2:40 PM FINDINGS: LINES AND TUBES: There is been interval placement of an endotracheal tube with the tip between the clavicles and the emily. CARDIOMEDIASTINAL SILHOUETTE: The cardiomediastinal silhouette is normal for portable technique. PLEURA: The costophrenic angles are sharp. No pleural abnormalities are noted. LUNG PARENCHYMA: The lungs are clear. ABDOMEN: The upper abdomen is clear. There is no subphrenic gas. BONES AND SOFT TISSUES: No bone or soft tissue abnormalities are noted. IMPRESSION: LINES AND TUBES ABOVE. NO ACTIVE CARDIOPULMONARY DISEASE.
--- NOTE | 2017-06-24 15:23 | CONS ---
CONSULTATION REPORT: DATE OF CONSULT: 06/24/17 LOCATION: I am consulted in the ER. CONSULTING PHYSICIAN: Dr. Crowley. REASON FOR CONSULTATION: Seizure, altered mental status. HISTORY OF PRESENT ILLNESS: Mr. Jay is a 51-year-old gentleman currently obtunded, I am unable to obtain any medical information from him. I made phone calls to both of the numbers listed in his chart, neither of which were answered , so my history is scant and from the ER physician and nurse. I did go back and review past medical records including a visit on 03/30/16, in which he was admitted for drug overdose, apparently took prescription medications, was monitored closely in the ICU and eventually was admitted involuntarily per the discharge summary. He did have an electroencephalogram done on 03/20/17, at that time, the clinical impression is a mild abnormal 24-hour EEG, there was frontally predominant intermittent antiarrhythmic delta activity during drowsiness, which is consistent with mild nonspecific diffuse encephalopathy, otherwise, the waking and sleeping backgrounds are normal. There is no epileptiform discharges. There was one event noted during his 24-hour study of a panic attack. This was not associated with any epileptiform abnormalities. The event is nonepileptic in nature. It is unclear to me at this point whether he is followed by a neurologist. He apparently, per review of the records, has a long history of narcotic abuse as well as alcohol abuse, has been to the ER at multiple times in the past and is reportedly on Keppra at home for his seizures, in the chart listed to be 750 mg p.o. b.i.d. He is also on oxycodone at home, Seroquel 150 mg at bedtime, venlafaxine 225 mg daily, ropinirole 0.25 mg at bedtime, thyroid medications, cyclobenzaprine, bumetanide, and atenolol these are all listed in his chart. I do not have verification of these medications. Apparently, today around 10 o'clock, he had a seizure at home and fell off the couch. His father apparently witnessed this, although I was not able to get in touch with him. EMS was called at that time, he was confused and somewhat combative, brought to the ER where he was given Ativan in the ER 2 mg with not much improvement, remained obtundent, and at times, noted to have involuntary movements. He was subsequently given 2 more milligrams of Ativan with no significant improvement in his condition. He did have a CT scan of his brain done, the report is pending. Upon my review, I see no evidence of acute intracranial abnormalities. I see no evidence of a bleed or mass effect. He has remained in an obtundent state in the ER and I was called to see him down here. PAST MEDICAL HISTORY: Is unknown at this point, but per the chart, he has multiple medical problems including a history of seizure disorder, IV drug abuse , hypothyroidism, cellulitis in the past, MRSA bacteremia, hepatitis C, polysubstance abuse, history of hernia repair, history of smoking, poor compliance. PAST SURGICAL HISTORY: At this point is unknown. MEDICATIONS: See above. ALLERGIES: To LOVASTATIN, HORSE DERIVED PRODUCTS, LACTASE, MILK RELATED COMPOUNDS. FAMILY HISTORY: Unknown. Per review of the prior medical records, he is noted to have a father who was a drug abuser. SOCIAL HISTORY: Noted per review, he used to smoke pack a day, drink alcohol in the past, positive heroin and cocaine abuse, not , but this is all from review of chart. I have no way to verify this at this point. REVIEW OF SYSTEMS: Review of systems in 14-organ systems could not be completed because of his mental state. PHYSICAL EXAMINATION: Vital signs: Temperature 98.6, pulse rate of 71 and respiratory rate of 25, pulse ox of 94%, current blood pressure 92/59. At the bedside, Mr. Jay is a well-developed, although disheveled gentleman lying in his hospital bed. Seizure pads are in place. He has some dried blood in his oropharynx and nose. He is not alert or awake. His chest has diffuse wheezes throughout. Cardiovascular: Tachycardic. Regular rhythm. Abdomen is distended and soft. Extremities: There is no clubbing, cyanosis, or edema. They are cool to the touch. Skin: There are no obvious skin breakdown or lesions. On neurologic exam, he is obtundent. He does not respond to painful stimuli or loud voice. His pupils are equally round and minimally reactive approximately 3 mm. His doll's eye is difficult to assess, but appears negative. I could not evaluate his oropharynx. I am not clear if he bit his tongue. He does not blink to threat. His face is symmetric. He is moving his extremities, but not to command. He has occasional twitches in his arms and legs, but no sustained tonic-clonic movements. His tone is normal at this time. DTRs were absent throughout. Upgoing Babinski bilaterally. He did not withdraw the pain in all 4 extremities. DIAGNOSTIC STUDIES/LAB DATA: Lab work, white count of 12.0, hemoglobin of 12 as well, hematocrit of 35, platelets count of 247. INR of 0.97. His complete metabolic profile, sodium of 147, glucose of 159, lactic acid of 2.8, and magnesium of 1.6. Toxicology, serum alcohol is pending. Brain CT as noted above. We are waiting final report. We are awaiting spine CT. ASSESSMENT AND PLAN: Mr. Jay is a 51-year-old gentleman with a history of seizure disorder, on Keppra, a history of multiple medical problems including IV drug abuse, polysubstance use, history of noncompliance, history of depression with suicide attempt last year, history of hypertension, history of chronic pain noted to be on pain medications in the ER record, history of tobacco use and a history of alcohol use, who was admitted to the hospital after apparently having a seizure this morning at around 10 a.m. In the ER, he was noted to be obtundent, has not responded total 4 mg of IV Ativan. At this point, I had the ER load him on 1000 mg of Keppra. It is unclear whether he has been taking these medication. It is also unclear whether he is currently intoxicated or under the influence of other substances. I will discuss with the ER physician regarding giving him Narcan if he does not improve in the next 20 to 30 minutes. In addition, I am considering placing him on continuous EEG monitoring if he does not improve and he will need to be admitted for closer monitoring. His left shift could be caused by an underlying seizure. He could be postictal at this point. I will reevaluate him down in the ER over the next hour or so and we will make further recommendations at that time. [id number]/[facility] #: [id number] [facility]
[2017-06-24] MEDS: Chlorhexidine MOUTHWASH 0.12%* 15 ML UDC TOPICAL SCH ×2 (18:19→21:44)
[2017-06-24] MEDS: Heparin VIAL(*) 5000 UNITS/ML VIAL (FIVE THOUSAND) SUBCUT SCH (21:45)
--- NOTE | 2017-06-25 03:00 | EEG ---
ELECTROENCEPHALOGRAPHY: DATE OF STUDY: 06/24/17 - ROOM #ICU-01 REQUESTING PHYSICIAN: Dr. Julien. CLINICAL PROBLEM: This is a 51-year-old man with a history of seizures, who was apparently found down by his father earlier today. He was in respiratory distress on arrival to emergency department with little response to sternal rub or other noxious stimulation. He received 4 mg of Ativan and has been loaded with 1 g of Keppra for presumed seizure. He was also given Narcan 0.4 mg without much response. EEG is requested to evaluate for epileptiform abnormalities. MEDICATIONS: Home medications not entered, but hospital administered medications include: 1. Zosyn. 2. Ativan 4 mg. 3. Keppra 1 g. 4. Narcan 0.4 mg. REPORT: The background lacked the organization typically expected of the waking or sleep background. Instead, the background demonstrated a sedated pattern with mixed frequency slowing and superimposed spindle-like activity predominantly in the frontocentral regions. There was also excess theta activity noted diffusely. There was intermittent muscle artifact noted and some brief increased and faster frequency activity with stimulation. There were several adventitious movements noted by the technologist including extremity jerking and jumping, which were not associated with any epileptiform abnormality. There were no seizures noted during this recording and no epileptiform abnormality. CLINICAL IMPRESSION: This is an abnormal EEG due to lack of expected organization, with the background primarily characterized by mixed frequency slowing consistent with a sedated pattern. The EEG does show some reactivity. There are no epileptiform abnormalities or seizures noted during this recording. There are no focal features seen during this recording. These findings are suggestive of a moderate, nonspecific, diffuse encephalopathy, which is most likely consistent with medication administration and/or postictal state. [id number]/[facility] #: [id number] [facility]
[2017-06-25] MEDS: Chlorhexidine MOUTHWASH 0.12%* 15 ML UDC TOPICAL SCH ×4 (04:01→17:14)
[2017-06-25] MEDS: Propofol* 100 ML IV SCH (05:10)
[2017-06-25] MEDS: Heparin VIAL(*) 5000 UNITS/ML VIAL (FIVE THOUSAND) SUBCUT SCH ×2 (05:18→16:25)
[2017-06-25] MEDS ORDERED: NS 0.9% 1000 ML* 1,000 ML IV ONE (05:47)
[2017-06-25 06:27] LABS: Hematocrit 36 % (42-52); Hemoglobin 12.2 g/dl (14.0-18.0); Mean Corpuscular HGB Conc 34 g/dl (31-36); Mean Corpuscular Hemoglobin 33 pg (27-31); Mean Corpuscular Volume 96 fL (80-94); Mean Platelet Volume 7 um3 (7.4-10.4); Red Blood Count 3.76 10^6/ul (4.0-5.4); Red Cell Distribution Width 16 % (10.5-15); White Blood Count 11.6 10^3/ul (3.5-10.8)
[2017-06-25 06:32] LABS: Add Diff/Slide Review? Slide Review Added; Comments Flag Yes
[2017-06-25 06:40] LABS: BUN/Creatinine Ratio 10.7 (8-20); EGFR African American 40.1 (>60); EGFR Non-African American 31.2 (>60); Potassium 4.8 mmol/L (3.5-5.0)
[2017-06-25 07:09] LABS: Magnesium 1.9 mg/dL (1.9-2.7)
[2017-06-25 08:27] LABS: Total Bilirubin 2.3 mg/dL (0.2-1.0)
[2017-06-25] MEDS ORDERED: LORazepam INJ* 2 MG/ML 1 ML VIAL IV PUSH PRN (08:29)
[2017-06-25] MEDS ORDERED: Norepinephrine 16MCG/ML IVPRE* 4,000 MCG/250 ML BAG IV ONE (08:36)
[2017-06-25] MEDS ORDERED: Atropine SYRINGE* 0.1 MG/ML 10 ML SYRINGE (1 MG) ONE (08:37)
[2017-06-25] MEDS ORDERED: Famotidine SUSP* 40 MG/5 ML ORAL.SUSP G TUBE ONE (09:00)
[2017-06-25] MEDS ORDERED: EPINEPHrine SYR 0.1 MG/ML* (1:10,000) SYRINGE ONE ×3 (09:18→20:29)
[2017-06-25] MEDS ORDERED: Glucagon* 1 MG VIAL IV ONE (09:56)
[2017-06-25 09:57] LABS: Albumin 3.2 g/dL (3.2-5.2); Globulin 1.8 g/dL (2-4); Indirect Bilirubin 1.4 mg/dL (0.3-1.0)
[2017-06-25] MEDS: Thiamine IV* 100 MG/ML 2 ML VIAL IV SCH ×2 (10:25→10:26)
[2017-06-25] MEDS ORDERED: Vasopressin* 100 UNITS in D5W 250 ML BAG* 245 ML IVPB SCH ×2 (10:45→12:00)
[2017-06-25 10:46] LABS: Venous Bicarbonate HCO3 11.4 mmol/L (24-28)
--- NOTE | 2017-06-25 10:49 | RAD ---
HISTORY: Shock, line placement COMPARISONS: June 24, 2017 VIEWS: 1: frontal portable view of the chest at 10:00 AM FINDINGS: LINES AND TUBES: The endotracheal tube is noted with the tip overlying the trachea. A right venous catheter is noted with tip overlying the cavoatrial junction. A gastric tube is noted with the tip coiled in the hypopharynx and upper esophagus. CARDIOMEDIASTINAL SILHOUETTE: The cardiomediastinal silhouette is normal for portable technique. PLEURA: The costophrenic angles are sharp. No pleural abnormalities are noted. LUNG PARENCHYMA: There is linear atelectasis of the left lung base ABDOMEN: The upper abdomen is clear. There is no subphrenic gas. BONES AND SOFT TISSUES: No bone or soft tissue abnormalities are noted. IMPRESSION: 1. LINES AND TUBES DESCRIBED ABOVE. THE GASTRIC TUBE POSITION WAS DISCUSSED WITH THE ICU TEAM AT MORNING OF 2016. 2. LINEAR ATELECTASIS OF THE LEFT LUNG BASE
[2017-06-25] MEDS ORDERED: DOBUTamine 2000 MCG/ML IVPREMX 500 MG/250 ML BAG IV SCH (11:00)
[2017-06-25] MEDS ORDERED: GLUCAGON IVPB ONE (11:00)
[2017-06-25] MEDS ORDERED: D5W IVPB ONE (11:00)
[2017-06-25] MEDS ORDERED: NS 0.9% 1000 ML* 1,000 ML IV SCH (11:00)
[2017-06-25] MEDS: Folic Acid IV* 1 MG/0.2 ML SYRINGE IV SCH ×2 (11:07→11:08)
[2017-06-25] MEDS: Hydrocortisone INJ* 100 MG VIAL IV SCH ×2 (11:09→17:14)
--- NOTE | 2017-06-25 11:44 | RAD ---
HISTORY: Shock, liver injury COMPARISONS: CT dated December 26, 2014 TECHNIQUE: Multiple transverse and longitudinal ultrasound images were obtained of the abdomen using grayscale, color Doppler, and spectral Doppler imaging. FINDINGS: LIVER: The liver is diffusely echogenic and coarse in echotexture, with decreased acoustic transmission. The liver measures 22 cm in long axis.. There is normal hepatopedal flow of the portal vein on Doppler imaging. BILIARY TREE: There is no intrahepatic or extrahepatic biliary dilatation. The common duct measures 0.2 cm. GALLBLADDER: The gallbladder wall is thickened and edematous measuring up to 1.2 cm. There is a small amount of pericholecystic fluid. PANCREAS: The head of the pancreas is unremarkable. The tail of the pancreas is not well visualized secondary to overlying bowel gas. SPLEEN: The spleen is normal in shape, size, contour, and echotexture. The spleen measures 11 x 3.3 x 2.7 cm. RIGHT KIDNEY: The right kidney is normal in shape, size, contour, and echogenicity. There is a small amount of perinephric fluid. There is no hydronephrosis or nephrolithiasis. The right kidney measures 13 x 6.3 x 6.7 cm. LEFT KIDNEY: The left kidney is normal in shape, size, contour, and echogenicity. There is a small amount of perinephric fluid. There is no hydronephrosis or nephrolithiasis. The left kidney measures 12.1 x 6 x 4.7 cm. AORTA AND IVC: The aorta is not well-visualized. The IVC is unremarkable. FLUID: There are no pleural effusions. There is no free fluid within the hepatorenal recess. OTHER FINDINGS: None. IMPRESSION: 1. ECHOGENIC LIVER SUGGESTIVE OF FATTY INFILTRATION. 2. HEPATOMEGALY. 3. GALLBLADDER WALL THICKENING. THIS MAY REFLECT REACTIVE EDEMA FROM HEPATIC INFLAMMATION, HYPOPROTEINEMIA, OR PRIMARY INFECTIOUS OR INFLAMMATORY PROCESS OF THE GALLBLADDER. 4. SMALL AMOUNT OF PERINEPHRIC FLUID BILATERALLY.
[2017-06-25] MEDS ORDERED: Insulin REGULAR(*) 1 UNITS UNIT IV PUSH ONE (11:51)
[2017-06-25 11:52] LABS: TSH (Thyroid Stimulating Horm) 1.03 mcIU/mL (0.34-5.60)
--- NOTE | 2017-06-25 11:59 | PN ---
PROGRESS NOTE: DATE OF PROGRESS NOTE: 06/25/17 LOCATION: This is a 51-year-old gentleman currently in ICU bed 1. I attempted to contact his szvbrt-cb-era yesterday but was unsuccessful. Apparently, the nursing staff here has been able to speak with him and he was found down blockading a door yesterday. Apparently, he was unconscious and was up against the door, his dmtllv-ev-rbm had to push it open. There is no known history of any medications or drugs that he has been using although he did have a suicidal attempt in the past. We are going to attempt to get his father-in- law to bring up his medication so that we can see how many medicines he is taking, how many pills are left in the bottle. He remained sedated on propofol overnight and intubated with no significant issues. He was withdrawing at times but remained calm. There was no reported seizure activity. He was maintained on his Keppra dose of 1000 mg IV b.i.d. overnight. EEG was done yesterday, which following clinical impression; the abnormal EEG due to lack of expected organization with background, primarily characterized by mixed frequency slow, consistent with a sedated pattern. The EEG does show some reactivity. There are no epileptiform abnormalities or seizures noted during this recording. There are no focal features seen during this recording. These findings are suggestive of a moderate nonspecific diffuse encephalopathy, which is most likely consistent with medication administration or postictal state. He did receive 4 mg of Ativan and 1000 mg of Keppra before that EEG was done. This morning, the nurse let me know that he may have had some posturing when I went into the room. He was off of propofol for about 30 minutes but in the middle of my exam he did open his eyes and became slightly more responsive. I saw no seizure activity today. Vital Signs: Temp of 97.5 to 96.3 to 96.6, heart rate in the 40s, respiratory rate 17 to 39, O2 sats of 100% intubated and ventilated, blood pressure 88/59 to 83/55 to 73/51. In general, he is a well-nourished, well-developed, obese gentleman in his hospital bed. He is obtunded. He has an NG tube and ET tube in place. The nurse states that he had no gag earlier this morning. His cardiovascular is bradycardic. No murmurs appreciated. Chest is clear to auscultation bilaterally with transmitted breath sounds. Abdomen is obese, soft , distended. Extremities: There is no cyanosis or edema. Neurologically, his pupils are 3 mm and minimally reactive. He had a mildly positive doll's eye but no purposeful movements. He does not blink to threat but he did have corneal responses bilaterally. He did open his eyes spontaneously to pain. He withdrew slightly in all extremities to painful stimuli. DTRs were 1+ at the biceps and brachioradialis, 2+ at the patella, absent at the ankles. He had equivocal Babinski's. He did not arouse to sternal rub initially but then opened his eyes eventually. This morning, a white count of 11.6 down from 12.0 , hemoglobin of 12.2, hematocrit of 36, platelet count of 114 down from 247, absolute neutrophils 9.0. His chemistry this morning sodium of 141, potassium of 4.8, chloride of 115, carbon dioxide of 20, creatinine of 2.24 up from 1.12 yesterday, glucose of 111. His LFTs are pending. Ammonia overnight of 66 and then 108. His total creatinine kinase of 142, total protein of 6.6, albumin of 4.1. Urine negative. His utox was less than 10. Alcohol presumptive. Positive amphetamines and benzodiazepines. Reports EEG as above. Chest x-ray done yesterday evening, lines and tubes as above, no active cardiopulmonary disease. ASSESSMENT AND PLAN: Mr. Jay is a 51-year-old gentleman with a complicated medical history including a history of polysubstance use, history of prior suicide attempt, history of seizures, apparently on Keppra at home although I did speak with his treating neurologist yesterday and he had been transitioned to Zonegran but it is is unclear if he was taking either one. On admission, he was obtunded with some jerking type movements. Initially, he was combative but he was given Ativan and subsequently sedated. Overnight, he was intubated and placed on propofol. This morning off of propofol, he does show some reactivity on examination, appears to be waking up some, but still obtunded. He has had some hypotension as well as bradycardia. At this point, my suspicion for underlying nonconvulsive status is low, we did do an EEG yesterday. This morning, he did wake up some to noxious stimuli. The plan is to hold on additional EEG monitoring at this time but if he does not start to clear, we will get continuous EEG monitoring. We will continue his Keppra. I will write for p.r.n. Ativan for any seizure activity, use propofol if necessary for sedation. I have started thiamine and folic acid. I will attempt to get more information from his wvfqwk-cn-cox including his current medication list and his bottles. His ammonia is elevated, which could certainly be causing hepatic encephalopathy as well as some tremor-like activity. I deferred to the treating medicine team regarding management of his elevated ammonia. He did receive a dose of vanc yesterday; infectious workup is in progress. I did speak with the treating ICU doctor today who feels that the likelihood of sepsis is low but this is something that we need to watch out for especially in light of his low blood pressures and autonomic dysfunction. In addition, this could be related to underlying drug use and/or withdrawal. He did apparently test positive for amphetamines and benzos. I see no evidence at this point of cholinergic crisis, no evidence of serotonin syndrome, certainly with a history of heavy alcohol use and with a level less than 10, he could be going through delirium tremens with his autonomic dysfunction. We will continue to monitor him in the ICU closely, consider continuous EEG monitoring and follow with serial exams. [id number]/[facility] #: [id number] ILIR
[2017-06-25] MEDS ORDERED: Dextrose 50% Syringe 50 ML* 25 GM/50 ML SYRINGE IV PUSH ONE (12:00)
[2017-06-25] MEDS ORDERED: Sodium Chloride Conc 23.4%* 77 MEQ in D10W 1000 ML BAG* 1,000 ML IV SCH (12:00)
[2017-06-25] MEDS ORDERED: EPINEPHrine AMP 1 MG/ML* 1 MG in D5W 250 ML BAG* 250 ML IVPB SCH (12:00)
[2017-06-25] MEDS: Sodium Bicarbonate 8.4% IV* 75 MEQ in NS 0.45% 1000 ML BAG* 1,000 ML IVPB SCH ×2 (12:01→17:32)
[2017-06-25] MEDS: Norepinephrine 16MCG/ML IVPRE* 4,000 MCG/250 ML BAG IV SCH ×2 (12:42→16:27)
--- NOTE | 2017-06-25 13:40 | PN ---
Progress Note - Progress Note Date of Service: 06/25/17 Note: CRITICAL CARE MEDICINE (late entry) DATE: 06/25/17 TIME: 800-835; 12:20-1340 SUBJECTIVE: Patient seen and examined. PHYSICAL EXAM: Vital Signs: Reviewed. HR SB this am and overnight. SBP into 70s a times 70-90s. Neurologic: stupor. bl ext movements with painful stimuli but not localizing. pupils midline but fixed. nonreactive for me. HEENT: anicteric, ett in place. +cough, mild gag. Cardiovascular: distant, reg kishan, no m Respiratory: coarse bl with dec air movement and poor trigger response on vent. changed to pcv with better dyanmics. Abdomen: obese, soft Extremities: cold and cyanotic Access: piv LABS: Reviewed. IMAGING: Reviewed. MEDICATIONS: Reviewed. ASSESSMENT: 51 M with probable polysubstance OD, with likely seizure dynamic perhaps and post-ictal state without seizures on eeg yesterday, with declining perfusion overnight, hypotention to cardiogenic shock this am, acute liver ischemia/shock, acute renal failure, hepatic encephalopathy contribution and plt consumption, with ongoing acute hypoxic resp failure and declining compensation this am. PLAN: this am Neurologic: remains on AED keppra. prn benzos. no seizure signs but global malperfusion not helping neuro. worry about his initial insult now being more from low flow hypoxic encephalopathy in retrospect with multisystem organ function ensuing now. Cardiovascular: hypoperfused. LR boluses this am. peripheral levophed started. central line performed emergently. bedside us with full ivc with variability. very depressed global cardiac function. atropine to no avail. dobutamine gtt added to no avail. concerning for bb OD, atenolol?, now worsening post liver failure. glucagon to no beneift. minimal response with epi push. epi, vasopressin gtts added. insulin/dextrose gtt. hco3 gtt. cehck echo for any benefit. Respiratory: stacking breaths this am and adjusted to aprv. repeated cxr. vbg with severe metabolic acidosis, and vent adjustements maintain. poor lung compliance and reserve but O2 tolerable. Gastrointestinal: replace ogt. hold on feeds. liver injury appears more likely from global shock and hypoxia fall out now. Needs improved perfusion. sup Renal/Metabolic: LA up with low flow and liver insult. fluids, bicarb buffer. dunham and f/u uout Infectious Disease: no infective source. Hematology: stable. hsq. plt consumbed and dropped. f/u Endocrine: glu declining some; question again bb od. startgin insulin and dextrose infusions. stress dose steroids given. Musculoskeletal: bedrest currently, skin precautions Psych/Social: social work eval ; d/w pts step father whom pt now lives with. He was concerned pt may have been suicidal that night but has no idea what he might have done. Pt had recent [verbal] fighting with brother and sister and not on speaking terms. explained pts condition with high morbidity and mortality at present. He expressed understanding. He believes he is closets relative to pt, and wasn't sure if he was going to tell pts brother and sister about his condition at this time. Supportive and preventative care as ordered. SUP: ppi VTE prophylaxis: heparin Dunham catheter given critical illness, monitoring needs for accurate assessment of ROSIE and KDIGO criteria for critically ill patients and to avoid potential harms of urinary retention, skin breakdown/ulcers. Disposition: ICU Code Status: Full Critical Care Time: 135min Ragini Dumont DO
[2017-06-25] MEDS: EPINEPHrine AMP 1 MG/ML* 1 MG in D5W 250 ML BAG* 250 ML IVPB SCH ×2 (14:12→16:28)
--- NOTE | 2017-06-25 14:39 | PN ---
Progress Note - Progress Note Date of Service: 06/25/17 Note: CRITICAL CARE MEDICINE PROCEDURE NOTE DATE: 06/25/17 TIME: 840 SERVICE: Critical Care Medicine LOCATION OF PROCEDURE: ICU PROCEDURE: Central line insertion PROCEDURALIST: Dr. Dumont Consent obtain: No, procedure performed emergently Time out held: Yes INDICATION: cardiogenic shock PROCEDURE: Oxygenation maintained and vitals monitored. Patient in supine position. SITE: RIGHT Subclavian Site preparation with chlorhexidine locally. Full sterile drape, gown, hat, mask, gloves. 5ml 1% Lidocaine utilized at incision site. Standard sterile Seldinger technique utilized and catheter was inserted to 16cm and sutured in place. Good blood return. Minimal blood loss. Site dressed with tegaderm. Portable chest x-ray with good position Patient otherwise tolerated well. Ragini Dumont DO
--- NOTE | 2017-06-25 15:30 | ED ---
Liu Richardson Alfonso, scribed for Santana Crowley MD on 06/24/17 at 1131 . Complex/Multi-Sys Presentation - HPI Summary HPI Summary: LEVEL 5 CAVEAT DUE TO POST ICTAL STATE. This patient is a 51 year old M BIBA to [facility] s/p seizure earlier today. The seizure was witnessed by his father, who is currently not present. Per EMS, the patient was on a carpeted floor during the seizure, combative, and is now postictal. Symptoms aggravated by nothing. Symptoms alleviated by nothing. EMS reports head trauma, and dry heaving. - History Of Current Complaint Chief Complaint: EDSeizure Time Seen by Provider: 06/24/17 11:21 Hx Obtained From: EMS Onset/Duration: Sudden Onset, Lasting Minutes Timing: Constant Aggravating Factor(s): Nothing Alleviating Factor(s): Nothing Associated Signs And Symptoms: Positive: Other - head trauma, and dry heaving. - Allergies/Home Medications Allergies/Adverse Reactions: Allergies Allergy/AdvReac Type Severity Reaction Status Date / Time Lovastatin Allergy Unknown Rhabdomyoly Verified 12/19/15 17:46 sis Horse-derived Products Allergy Unknown Verified 12/19/15 17:46 Reaction Details Lactase Allergy Nausea And Verified 03/31/16 15:14 Vomiting Milk-related Compounds Allergy See Comment Verified 12/23/15 17:33 PMH/Surg Hx/FS Hx/Imm Hx Endocrine/Hematology History: Reports: Hx Thyroid Disease Denies: Hx Diabetes Cardiovascular History: Reports: Hx Hypercholesterolemia, Hx Hypertension - ON MEDICATION FOR Denies: Hx Pacemaker/ICD GI History: Reports: Hx Gastroesophageal Reflux Disease, Hx Irritable Bowel History: Reports: Hx Acute Renal Failure, Other Problems/Disorders - Pt states "kidneys have shut down before" Denies: Hx Renal Disease Musculoskeletal History: Reports: Hx Arthritis - OSTEOARTHRITIS, Hx Back Problems - PT ON CHRONIC DISABILITY DUE TO CHRONIC BACK/PAIN ISSUES, Hx Orthopedic Injury, Hx Tendonitis, Other Musculoskeletal History - HERNIA REPAIR Sensory History: Reports: Hx Contacts or Glasses Denies: Hx Hearing Aid Opthamlomology History: Reports: Hx Contacts or Glasses Neurological History: Reports: Hx Headaches, Hx Nerve Disease - on NEURONTIN, Hx Seizures, Other Neuro Impairments/Disorders Psychiatric History: Reports: Hx Anxiety, Hx Depression, Hx Inpatient Treatment , Hx Community Mental Health Tx, Hx Suicide Attempt - "Pt states overdosing and trying to cut himself", Hx of Violent Episodes Against Others, Hx Substance Abuse, Other Psychiatric Issues/Disorders - Hx of hurting himself "with pushpins " Denies: Hx Eating Disorder, Hx Panic Disorder - Surgical History Surgery Procedure, Year, and Place: Hernia repair Hx Anesthesia Reactions: No - Immunization History Date of Tetanus Vaccine: unknown Infectious Disease History: Unable to Obtain/Confirm Infectious Disease History: Reports: Hx of Known/Suspected MRSA Denies: Traveled Outside the [place] in Last 30 Days - Family History Known Family History: Positive: Other - FHx of depression - Mother Family History: FHx of depression - Mother. FHx of alcohol abuse - paternal aunt - Social History Alcohol Use: Occasionally Alcohol Amount: currently intoxicated Hx Substance Use: Yes - Presribed narcotics Substance Use Type: Reports: Cocaine, Sedatives Substance Use Comment - Amount & Last Used: Previous hx of cocaine and IV drugs Hx Tobacco Use: Yes Smoking Status (MU): Current Every Day Smoker Type: Cigarettes Amount Used/How Often: 1/2 PPD Length of Time of Smoking/Using Tobacco: 30YRS Have You Smoked in the Last Year: Yes Review of Systems - ROS Summary Review of Systems Summary: LEVEL 5 CAVEAT DUE TO POST ICTAL STATE. Positive: Other - dry heaving Neurological: Other - seizure, head trauma All Other Systems Reviewed And Are Negative: No Physical Exam Triage Information Reviewed: Yes Vital Signs On Initial Exam: Initial Vitals Temp Pulse Resp BP Pulse Ox 98.6 F 71 25 92/59 94 06/24/17 11:15 06/24/17 11:15 06/24/17 11:15 06/24/17 11:15 06/24/17 11:15 Vital Signs Reviewed: Yes Completion Of Physical Exam Limited Due To: Level 5 Appearance: Positive: Well-Appearing, No Pain Distress, Well-Nourished Skin: Positive: Warm, Dry, Other - Abrasion head Head/Face: Positive: Normal Head/Face Inspection Eyes: Positive: Conjunctiva Clear Neck: Positive: Other: - Musculoskeletal ROM normal neck. (-) JVD, (-) Stridor, (-) Tracheal deviation, (-) Cervical adenopathy Respiratory/Lung Sounds: Positive: Other - Effort normal. (-) Respiratory distress, (+) Expiratory Wheezes, (-) Rales Cardiovascular: Positive: RRR, Other - Heart sounds normal; Intact distal pulses ; The pedal pulses are 2+ and symmetric. Radial pulses are 2+ and symmetric. (- ) Murmur Abdomen Description: Positive: Nontender, Soft, Other: - Negative rebound. Negative: Distended, Guarding Bowel Sounds: Positive: Present Musculoskeletal: Negative: Edema Left, Edema Right Neurological: Positive: Other - No purposeful movement. Mild tremors Psychiatric: Positive: Affect/Mood Appropriate - [place] Coma Scale Best Eye Response: 1 - None Best Motor Response: 4 - Withdraws Best Verbal Response: 1 - None [place] Coma Scale Comments: 03/20. He is protecting his airway. Procedures - Procedure Summary Procedure Summary: Intubation: Mac blade 3. Visualized vocal cords. 8.0 tube. 23 cm at the lips. Good breath sounds bilaterally s/p. Diagnostics - Vital Signs Vital Signs Temp Pulse Resp BP Pulse Ox 06/24/17 11:15 98.6 F 71 25 92/59 94 - Laboratory Lab Results: Lab Results 06/24/17 06/24/17 06/24/17 Range/Units 11:30 11:30 11:30 WBC 12.0 H (3.5-10.8) 10^3/ul RBC 3.79 L (4.0-5.4) 10^6/ul Hgb 12.0 L (14.0-18.0) g/dl Hct 35 L (42-52) % MCV 93 (80-94) fL MCH 32 H (27-31) pg MCHC 34 (31-36) g/dl RDW 15 (10.5-15) % Plt Count 247 (150-450) 10^3/ul MPV 6 L (7.4-10.4) um3 Neut % (Auto) 85.0 H (38-83) % Lymph % (Auto) 7.1 L (25-47) % Sutter % (Auto) 7.5 (1-9) % Eos % (Auto) 0.1 (0-6) % Baso % (Auto) 0.3 (0-2) % Absolute Neuts (auto) 10.2 H (1.5-7.7) 10^3/ul Absolute Lymphs (auto) 0.9 L (1.0-4.8) 10^3/ul Absolute Monos (auto) 0.9 H (0-0.8) 10^3/ul Absolute Eos (auto) 0 (0-0.6) 10^3/ul Absolute Basos (auto) 0 (0-0.2) 10^3/ul Absolute Nucleated RBC 0 10^3/ul Nucleated RBC % 0 INR (Anticoag Therapy) (0.89-1.11) Patient Temperature ABG pH (7.35-7.45) ABG pH (Temp Correct) ABG pCO2 (35-45) mmHg ABG pCO2 (Temp Corrct ABG pO2 (80-100) mmHg ABG pO2 (Temp Correct ABG HCO3 (19-31) mmol/L ABG O2 Saturation (95-98) % ABG Base Excess (-2.0-2.0) Respiration Rate O2 Delivery Device Ventilator Type Vent Mode FiO2 Inspiratory Time PEEP Pressure Support Pressure Control EPAP IPAP BiPAP Sodium 147 H (133-145) mmol/L Potassium 3.7 (3.5-5.0) mmol/L Chloride 110 (101-111) mmol/L Carbon Dioxide 29 (22-32) mmol/L Anion Gap 8 (2-11) mmol/L BUN 13 (6-24) mg/dL Creatinine 1.12 (0.67-1.17) mg/dL Est GFR ( Amer) 89.3 (>60) Est GFR (Non-Af Amer) 69.4 (>60) BUN/Creatinine Ratio 11.6 (8-20) Glucose 149 H (70-100) mg/dL Lactic Acid (0.5-2.0) mmol/L Calcium 10.2 (8.6-10.3) mg/dL Magnesium 1.6 L (1.9-2.7) mg/dL Total Bilirubin 0.60 (0.2-1.0) mg/dL AST 20 (13-39) U/L ALT 17 (7-52) U/L Alkaline Phosphatase 41 (34-104) U/L Total Creatine Kinase 142 (10-223) U/L Total Protein 6.6 (6.4-8.9) g/dL Albumin 4.1 (3.2-5.2) g/dL Globulin 2.5 (2-4) g/dL Albumin/Globulin Ratio 1.6 (1-3) Urine Color Urine Appearance Urine pH (5-9) Ur Specific [place] (1.010-1.030) Urine Protein (Negative) Urine Ketones (Negative) Urine Blood (Negative) Urine Nitrate (Negative) Urine Bilirubin (Negative) Urine Urobilinogen (Negative) Ur Leukocyte Esterase (Negative) Urine Glucose (Negative) Salicylates < 2.50 (<30) mg/dL Urine Opiates Screen (None Detect) Acetaminophen < 15 mcg/mL Ur Barbiturates Screen (None Detect) Levetiracetam <2.0 L mcg/mL Ur Phencyclidine Scrn (None Detect) Ur Amphetamines Screen (None Detect) U Benzodiazepines Scrn (None Detect) Urine Cocaine Screen (None Detect) U Cannabinoids Screen (None Detect) Serum Alcohol < 10 (<10) mg/dL 06/24/17 06/24/17 06/24/17 Range/Units 11:30 11:30 13:18 WBC (3.5-10.8) 10^3/ul RBC (4.0-5.4) 10^6/ul Hgb (14.0-18.0) g/dl Hct (42-52) % MCV (80-94) fL MCH (27-31) pg MCHC (31-36) g/dl RDW (10.5-15) % Plt Count (150-450) 10^3/ul MPV (7.4-10.4) um3 Neut % (Auto) (38-83) % Lymph % (Auto) (25-47) % Sutter % (Auto) (1-9) % Eos % (Auto) (0-6) % Baso % (Auto) (0-2) % Absolute Neuts (auto) (1.5-7.7) 10^3/ul Absolute Lymphs (auto) (1.0-4.8) 10^3/ul Absolute Monos (auto) (0-0.8) 10^3/ul Absolute Eos (auto) (0-0.6) 10^3/ul Absolute Basos (auto) (0-0.2) 10^3/ul Absolute Nucleated RBC 10^3/ul Nucleated RBC % INR (Anticoag Therapy) 0.97 (0.89-1.11) Patient Temperature ABG pH (7.35-7.45) ABG pH (Temp Correct) ABG pCO2 (35-45) mmHg ABG pCO2 (Temp Corrct ABG pO2 (80-100) mmHg ABG pO2 (Temp Correct ABG HCO3 (19-31) mmol/L ABG O2 Saturation (95-98) % ABG Base Excess (-2.0-2.0) Respiration Rate O2 Delivery Device Ventilator Type Vent Mode FiO2 Inspiratory Time PEEP Pressure Support Pressure Control EPAP IPAP BiPAP Sodium (133-145) mmol/L Potassium (3.5-5.0) mmol/L Chloride (101-111) mmol/L Carbon Dioxide (22-32) mmol/L Anion Gap (2-11) mmol/L BUN (6-24) mg/dL Creatinine (0.67-1.17) mg/dL Est GFR ( Amer) (>60) Est GFR (Non-Af Amer) (>60) BUN/Creatinine Ratio (8-20) Glucose (70-100) mg/dL Lactic Acid 2.8 H* (0.5-2.0) mmol/L Calcium (8.6-10.3) mg/dL Magnesium (1.9-2.7) mg/dL Total Bilirubin (0.2-1.0) mg/dL AST (13-39) U/L ALT (7-52) U/L Alkaline Phosphatase (34-104) U/L Total Creatine Kinase (10-223) U/L Total Protein (6.4-8.9) g/dL Albumin (3.2-5.2) g/dL Globulin (2-4) g/dL Albumin/Globulin Ratio (1-3) Urine Color Urine Appearance Urine pH (5-9) Ur Specific [place] (1.010-1.030) Urine Protein (Negative) Urine Ketones (Negative) Urine Blood (Negative) Urine Nitrate (Negative) Urine Bilirubin (Negative) Urine Urobilinogen (Negative) Ur Leukocyte Esterase (Negative) Urine Glucose (Negative) Salicylates (<30) mg/dL Urine Opiates Screen None detected (None Detect) Acetaminophen mcg/mL Ur Barbiturates Screen None detected (None Detect) Levetiracetam mcg/mL Ur Phencyclidine Scrn None detected (None Detect) Ur Amphetamines Screen Presumptive positive H (None Detect) U Benzodiazepines Scrn Presumptive positive H (None Detect) Urine Cocaine Screen None detected (None Detect) U Cannabinoids Screen None detected (None Detect) Serum Alcohol (<10) mg/dL 06/24/17 06/24/17 Range/Units 13:18 13:45 WBC (3.5-10.8) 10^3/ul RBC (4.0-5.4) 10^6/ul Hgb (14.0-18.0) g/dl Hct (42-52) % MCV (80-94) fL MCH (27-31) pg MCHC (31-36) g/dl RDW (10.5-15) % Plt Count (150-450) 10^3/ul MPV (7.4-10.4) um3 Neut % (Auto) (38-83) % Lymph % (Auto) (25-47) % Sutter % (Auto) (1-9) % Eos % (Auto) (0-6) % Baso % (Auto) (0-2) % Absolute Neuts (auto) (1.5-7.7) 10^3/ul Absolute Lymphs (auto) (1.0-4.8) 10^3/ul Absolute Monos (auto) (0-0.8) 10^3/ul Absolute Eos (auto) (0-0.6) 10^3/ul Absolute Basos (auto) (0-0.2) 10^3/ul Absolute Nucleated RBC 10^3/ul Nucleated RBC % INR (Anticoag Therapy) (0.89-1.11) Patient Temperature Not Reportable ABG pH 7.34 L (7.35-7.45) ABG pH (Temp Correct) Not Reportable ABG pCO2 52 H (35-45) mmHg ABG pCO2 (Temp Corrct Not Reportable ABG pO2 73 L (80-100) mmHg ABG pO2 (Temp Correct Not Reportable ABG HCO3 26.1 (19-31) mmol/L ABG O2 Saturation 97.3 (95-98) % ABG Base Excess 1.6 (-2.0-2.0) Respiration Rate Not Reportable O2 Delivery Device Oxymask Ventilator Type Not Reportable Vent Mode Not Reportable FiO2 Not Reportable Inspiratory Time Not Reportable PEEP Not Reportable Pressure Support Not Reportable Pressure Control Not Reportable EPAP Not Reportable IPAP Not Reportable BiPAP Not Reportable Sodium (133-145) mmol/L Potassium (3.5-5.0) mmol/L Chloride (101-111) mmol/L Carbon Dioxide (22-32) mmol/L Anion Gap (2-11) mmol/L BUN (6-24) mg/dL Creatinine (0.67-1.17) mg/dL Est GFR ( Amer) (>60) Est GFR (Non-Af Amer) (>60) BUN/Creatinine Ratio (8-20) Glucose (70-100) mg/dL Lactic Acid (0.5-2.0) mmol/L Calcium (8.6-10.3) mg/dL Magnesium (1.9-2.7) mg/dL Total Bilirubin (0.2-1.0) mg/dL AST (13-39) U/L ALT (7-52) U/L Alkaline Phosphatase (34-104) U/L Total Creatine Kinase (10-223) U/L Total Protein (6.4-8.9) g/dL Albumin (3.2-5.2) g/dL Globulin (2-4) g/dL Albumin/Globulin Ratio (1-3) Urine Color Yellow Urine Appearance Clear Urine pH 7.0 (5-9) Ur Specific [place] 1.005 L (1.010-1.030) Urine Protein Negative (Negative) Urine Ketones Negative (Negative) Urine Blood Negative (Negative) Urine Nitrate Negative (Negative) Urine Bilirubin Negative (Negative) Urine Urobilinogen Negative (Negative) Ur Leukocyte Esterase Negative (Negative) Urine Glucose Negative (Negative) Salicylates (<30) mg/dL Urine Opiates Screen (None Detect) Acetaminophen mcg/mL Ur Barbiturates Screen (None Detect) Levetiracetam mcg/mL Ur Phencyclidine Scrn (None Detect) Ur Amphetamines Screen (None Detect) U Benzodiazepines Scrn (None Detect) Urine Cocaine Screen (None Detect) U Cannabinoids Screen (None Detect) Serum Alcohol (<10) mg/dL Result Diagrams: 06/25/17 06:15 06/25/17 06:15 Lab Statement: Any lab studies that have been ordered have been reviewed, and results considered in the medical decision making process. - Radiology CXR Radiology Interpretation Completed By: Radiologist - NO EVIDENCE FOR ACUTE DISEASE. ED physician has reviewed this radiology report and agrees. CXR 2 Radiology Interpretation Completed By: ED Physician - Tube in good position, Radiologist - FINDINGS: LINES AND TUBES: There is been interval placement of an endotracheal tube with the tip between the clavicles and the emily. CARDIOMEDIASTINAL SILHOUETTE: The cardiomediastinal silhouette is normal for portable technique. PLEURA: The costophrenic angles are sharp. No pleural abnormalities are noted. LUNG PARENCHYMA: The lungs are clear. ABDOMEN: The upper abdomen is clear. There is no subphrenic gas. BONES AND SOFT TISSUES: No bone or soft tissue abnormalities are noted. IMPRESSION: LINES AND TUBES ABOVE. NO ACTIVE CARDIOPULMONARY DISEASE. ED physician has reviewed this radiology report and agrees. - CT C-Spine CT Interpretation Completed By: Radiologist - 1. No evidence for traumatic cervical spine injury. 2. Diffuse advanced degenerative spondylosis and facet joint osteoarthritis with resulting multilevel acquired spinal stenosis as described with progression of disease compared with the 2011 MRI. ED physician has reviewed this radiology report and agrees. Brain CT Interpretation Completed By: Radiologist - Motion artifact limits evaluation. No gross hemorrhage is noted. ED physician has reviewed this radiology report and agrees. - EKG 1239 Cardiac Rate: NL - BPM 66 EKG Rhythm: Sinus Rhythm EKG Interpretation: No STEMI 1346 Cardiac Rate: NL - BPM 66 EKG Rhythm: Sinus Rhythm EKG Interpretation: No STEMI Re-Evaluation - Re-Evaluation First Eval Re-Evaluation Time: 12:58 Comment: Spoke to stepfather who stated the patient was last seen normal at 0000 today. He reports finding him on the floor of his bedroom today at 1015. He does not know if the patient uses drugs or ETOH. He denies recent illness or medication noncompliance. He reports PMHx of seizures. He states the patients mother recently . Second Eval Re-Evaluation Time: 13:34 Comment: No changes in status. He still occasionally jerks his LUE. He still has tachypnea. No response to narcan. Respiratory therapy at bedside obtaining arterial blood gas. Third Eval Re-Evaluation Time: 14:12 Comment: Dr. Dumont (ICU) evaluated the pt in the ED and request intubating the patient and use propofol despite blood pressure. Dr. Julien states that based on the EEG currently being done the patient is not actively seizing. Complex Multi-Symp Course/Dx Assessment/Plan: LEVEL 5 CAVEAT DUE TO POST ICTAL STATE. This patient is a 51 year old M BIBA to [facility] s/p seizure earlier today. The seizure was witnessed by his father, who is currently not present. Per EMS, the patient was on a carpeted floor during the seizure, combative, and is now postictal. Symptoms aggravated by nothing. Symptoms alleviated by nothing. EMS reports head trauma, and dry heaving. An EKG reveals NSR. CXR reveals NO EVIDENCE FOR ACUTE DISEASE. ED physician has reviewed this radiology report and agrees. CT Brain reveals Motion artifact limits evaluation. No gross hemorrhage is noted. ED physician has reviewed this radiology report and agrees. CT C-Spine reveals 1. No evidence for traumatic cervical spine injury. 2. Diffuse advanced degenerative spondylosis and facet joint osteoarthritis with resulting multilevel acquired spinal stenosis as described with progression of disease compared with the 2011 MRI. ED physician has reviewed this radiology report and agrees. At 1258 Spoke to stepfather who stated the patient was last seen normal at 0000 today. He reports finding him on the floor of his bedroom today at 1015. He does not know if the patient uses drugs or ETOH. He denies recent illness or medication noncompliance. He reports PMHx of seizures. He states the patients mother recently . At 1334 No changes in status. He still occasionally jerks his LUE. He still has tachypnea. No response to narcan. Respiratory therapy at bedside obtaining arterial blood gas. Intubation: Mac blade 3. Visualized vocal cords. 8.0 tube. 23 cm at the lips. Good breath sounds bilaterally s/p. Second CXR reveals tube in good position. Consulted Dr. Julien (neurology) who will see the patient in the ED after discussing the patient's persistent post ictal state and possible subclincial seizures. Consulted Dr. Dumont (ICU) at 1344 who agrees to admit. - Diagnoses Provider Diagnoses: Altered mental status, Seizure disorder, Hypotension - Physician Notifications Discussed Care Of Patient With: Ce Julien Time Discussed With Above Provider: 11:59 Instructed by Provider To: Other - Consulted Dr. Julien (neurology) who will see the patient in the ED after discussing the patient's persistent post ictal state and possible subclincial seizures. Consulted Dr. Julia (ICU) at 1344 who agrees to admit. Discharge - Discharge Plan Condition: Critical Disposition: ADMITTED TO [facility] documentation as recorded by the Liu crawford Alfonso accurately reflects the service I personally performed and the decisions made by , Santana Crowley MD.
--- NOTE | 2017-06-25 15:33 | PN ---
Progress Note - Progress Note Date of Service: 06/25/17 Note: CRITICAL CARE MEDICINE PROCEDURE NOTE DATE: 06/25/17 TIME: 1530 SERVICE: Critical Care Medicine LOCATION OF PROCEDURE: ICU PROCEDURE: Arterial line insertion. PROCEDURALIST: Dr. Dumont Consent obtain: No, procedure performed emergently Time out held: Yes INDICATION: Cardiogenic shock PROCEDURE: Oxygenation maintained and vitals monitored. Patient in supine position. SITE: RIGHT Femoral Artery Site preparation with chlorhexidine locally. Full sterile drape, gown, hat, mask, gloves. 5ml 1% Lidocaine utilized at incision site. Standard sterile Seldinger technique utilized via ultrasound guidance and catheter was inserted to 14cm and sutured in place. Good wave form. Minimal blood loss. Site dressed with tegaderm. Patient otherwise tolerated well. Ragini Dumont DO
--- NOTE | 2017-06-25 15:51 | PN ---
Progress Note - Progress Note Date of Service: 06/25/17 Note: CRITICAL CARE MEDICINE (late entry) DATE: 06/25/17 TIME: 1530 Remains cyanotic. Hr still highest 62 on 30mcg epi gtt, 15 levophed. BG ok with insulin and dextrose gtt. Echo showing dismal global heart function. MSOF worsening with refractory cardiogenic shock that certainly does not seem survivable. No HD tolerability or benefit and unstable for any transfer. D/w pts step-father (Ryley Ruby - with whom pt lives with, non-proxy, but siblings unreachable so far) who expresses understanding of the grim prognosis, maxed tx including already chemically coding without much improvement and likely demise today in which cpr would be no benefit. He agrees pt would not want cpr in that case and we should not attempt (as it will not be successful anyhow) and allow natural if it comes to it. We agree with continued tx at present. Disposition: ICU Code Status: DNR Critical Care Time: 15min Ragini Dumont DO
[2017-06-25 16:08] LABS: PCO2 Arterial 25 mmHg (35-45)
[2017-06-25] MEDS: EPINEPHRINE AMP IVPB SCH ×2 (16:58→19:11)
[2017-06-25] MEDS: D5W IVPB SCH ×2 (16:58→19:11)
[2017-06-25 21:23] VITALS: BP 88/68
--- NOTE | 2017-06-26 09:29 | ECHO ---
Amended Report Patient: FAHAD STOLL [facility] Rec#: [id number] : 1965 Date: 06/25/2017 Age: 51y Height: 175.3 cm / 69.0 in Weight: 97.1 kg / 214.0 lbs Sex: M BSA: 2.1 Room#: ICU 1 Admit Date#: 06/24/2017 Type: Inpatient Referring: Luis Carlos Dumont Reading: Amanda Watkins MD Vitamin Manager: Binta Sterlnig RN RDCS CC: Carlos Collins MD Transthoracic Echocardiogram Indication: Shock BP: 88/71 HR: 55 Rhythm: Bradycardia Findings History: HTN, seizure disorder, HLD, polysubstance abuse including IV drug use and ETOH use, smoker, hepatitis C, MRSA bacteremia. The patient is on mechanical ventilation and vasopressors during the exam. Technical Comments: The study is technically limited due to patient body habitus. The study is technically limited due to the patient's smoking history. The study is technically limited due to patient being intubated and on a ventilator. Completed at 1455. Left Ventricle: The left ventricular chamber size is normal. Mild to moderate concentric left ventricular hypertrophy is observed. There is global hypokinesis of the left ventricle with minor regional variation. There is severely decreased left ventricular systolic function. The estimated ejection fraction is less than 20%. The images obtained with Definity enhancement may suggest the presence of apical thrombus. There is septal flattening of the interventricular septum consistent with right ventricular volume or pressure overload. The assessment of diastolic function is non-diagnostic. Left Atrium: The left atrial chamber size is normal. Right Ventricle: The right ventricle is mildly dilated. The right ventricular global systolic function is severely reduced. Right Atrium: The right atrium is slightly dilated. Aortic Valve: The aortic valve is trileaflet. The aortic valve leaflets are mildly thickened. There is no evidence of aortic regurgitation. There is no evidence of aortic stenosis. Mitral Valve: The mitral valve leaflets are mildly thickened. There is a trace of mitral regurgitation. There is no evidence of mitral stenosis. Tricuspid Valve: The tricuspid valve leaflets are normal. There is trace to mild tricuspid regurgitation. No pulmonary hypertension is noted. There is no tricuspid stenosis. Pulmonic Valve: The pulmonic valve appears normal. There is a trace pulmonic regurgitation. There is no pulmonic stenosis. Pericardium: There is no significant pericardial effusion. A pericardial fat pad is visualized. Aorta: There is no dilatation of the ascending aorta. There is no dilatation of the aortic arch. There is no dilation of the aortic root. Pulmonary Artery: The main pulmonary artery is not well visualized. Venous: Unable to accurately comment on the size collapsibility of the IVC as the patient in known to be on mechanical ventilation. Contrast: Definity was used to optimize study. A total of 5 ml of Definity was given IV. Summary: There are changes noted when compared to the previous study done on 05/05/2015, now LV EF is severely reduced instead of normal at 65% then. Conclusions The left ventricular chamber size is normal. Mild to moderate concentric left ventricular hypertrophy is observed. There is global hypokinesis of the left ventricle with minor regional variation. There is severely decreased left ventricular systolic function. The estimated ejection fraction is less than 20%. The images obtained with Definity enhancement may suggest the presence of apical thrombus. There is septal flattening of the interventricular septum consistent with right ventricular volume or pressure overload. The right ventricular global systolic function is severely reduced. There is a trace of mitral regurgitation. There is trace to mild tricuspid regurgitation. There is a trace pulmonic regurgitation. There are changes noted when compared to the previous study done on 05/05/2015, now LV EF is severely reduced instead of normal at 65% then. Measurements Name Value Normal Range RVDdMajor (2D) 3.6 cm (2.2 - 4.4) RAd ISD 4CH 5 cm (3.4 - 4.9) RA (A4C)W 4.1 cm (2.9 - 4.6) IVSd (2D) 1.3 cm (0.6 - 1) LVPWd (2D) 14.3 cm (0.6 - 1) LVIDd (2D) 4.1 cm (3.6 - 5.4) LVIDs (2D) 3.9 cm - LV FS (2D) 5 % (25 - 45) Aortic Annulus 1.9 cm (1.4 - 2.6) Ao root diameter (2D) 2.9 cm (2.1 - 3.5) Ascending Ao 2.9 cm (2.1 - 3.4) Aortic arch 2.3 cm (1.8 - 3.4) LA dimension (AP) 2D 4.2 cm (2.3 - 3.8) LAd ISD 4CH 4.8 cm (2.9 - 5.3) LA ISD 4CH W 3.2 cm (2.5 - 4.5) Name Value Normal Range LA ESV SP 4CH (A/L) 29.5 ml - LA ESV SP 2CH (A/L) 55 ml - LA ESV BP (A/L) 41.4 ml - LA ESV BP (A/L) index 19.4 ml/m2 - LA ESV SP 4CH (MOD) 28 ml - LA ESV SP 2CH (MOD) 52.6 ml - Name Value Normal Range MV E-wave Vmax 0.57 m/sec - MV deceleration time 231 msec - MV A-wave Vmax 0.3 m/sec - MV E:A ratio 1.9 ratio - LV septal e' Vmax 0.04 m/sec - LV lateral e' Vmax 0.05 m/sec - LV E:e' septal ratio 14.3 ratio - LV E:e' lateral ratio 11.4 ratio - Name Value Normal Range AV Vmax 0.58 m/sec - AV VTI 9.9 cm - AV peak gradient 0.81 mmHg - AV mean gradient 0.69 mmHg - LVOT Vmax 0.5 m/sec - LVOT VTI 7.2 cm - LVOT peak gradient 0.99 mmHg - LVOT mean gradient 0.57 mmHg - KORY Vmax 0.34 m/sec - Name Value Normal Range TR Vmax 2.2 m/sec - TR peak gradient 19 mmHg - RAP 8 mmHg - RVSP 27 mmHg - IVC diameter 2.6 cm - Name Value Normal Range PV Vmax 0.4 m/sec -
--- NOTE | 2017-06-26 12:14 | DS ---
CRITICAL CARE MEDICINE DISCHARGE SUMMARY ADMISSION DATE: 06/24/2017 ICU ADMISSION DATE: 06/24/2017 ICU DISCHARGE DATE: 06/25/2017 REFERRING PHYSICIAN: Dr. Crowley. DIAGNOSIS: 1. Polysubstance overdose, including toxicology screen positive for benzodiazepines and amphetamines. 2. Beta patti overdose. 3. Multisystem organ failure. 4. Coma on admission. 5. Seizure disorder. 6. Hypoxic encephalopathy. 7. Cardiogenic shock. 8. Acute hypoxic respiratory failure. 9. Acute ischemic hepatitis. 10. Acute renal failure/tubular necrosis. 11. Hepatic encephalopathy. 12. History of suicidal ideation. MEDICATIONS AT DISCHARGE: None. Outpatient prescritptions presented by patients step father 06/26/17 around 1600 , included: Cyclobenzarine, bumetanide, zonisamide, atenolol, levothyroxine, hydroxyzine, oxycodone, ropinirole, omeprazole. HOSPITAL COURSE: 51 year old male with limited history secondary to acuity, was apparently last known well about 2200 night before presentation, when found in [employer] education [employer] by step father laying face down on the floor in his room. Appeared to be breathing but feet were against the door and step father unable to open door. EMS arrived and able to get through door. Patient mildly combative but altered with concern for seizure disorder brought into ED. Obtunded to stupor in ED and unable to protect airway requiring intubation. EEG not revealing any active seizure. Reloaded with keppra and supported in ICU. Unfortunaely his condition was non-improving overnight with more evidence of global hypoxic insult with mult-system failures and patient without cardivascular compensation. Central access, arterial line monitoring with multivasopressors to no avail trying to support his cardiovascular collpase. Beta patti overdose then suspected with supportive treatments again to no avail. Patient continued with coma, multisystem organ failure unresponsive to life support measures. Family updated on non-response to therapies and likely demise. Family conflicted regarding DNR and patient with subsequent arrest and then DNR confirmed and patient passed in ICU. [facility] notified of case. Disposition: . Ragini Dumont DO
== END 2017-06-25 21:02 | disposition expired | DRG 812 ==
LOC: ED 11:10 → ICU 14:10
PROVIDERS: ADMIT Internal Medicine Critical Care Medicine; ATTEND Internal Medicine
PROC: 5A1945Z Respiratory Ventilation, 24-96 Consecutive Hours (ICD-10-PCS; principal; 2017-06-24)
PROC: 0BH17EZ Insertion of Endotracheal Airway into Trachea, Via Natural or Artificial Opening (ICD-10-PCS; 2017-06-24)
PROC: 4A00X4Z Measurement of Central Nervous Electrical Activity, External Approach (ICD-10-PCS; 2017-06-24)
PROC: 3E033XZ Introduction of Vasopressor into Peripheral Vein, Percutaneous Approach (ICD-10-PCS; 2017-06-25)
PROC: 05H533Z Insertion of Infusion Device into Right Subclavian Vein, Percutaneous Approach (ICD-10-PCS; 2017-06-25)
PROC: 04HK33Z Insertion of Infusion Device into Right Femoral Artery, Percutaneous Approach (ICD-10-PCS; 2017-06-25)
DX: T42.4X1A Poisoning by benzodiazepines, accidental (unintentional), initial encounter (principal); R40.2342 Coma scale, best motor response, flexion withdrawal, at arrival to emergency department; N17.0 Acute kidney failure with tubular necrosis; R57.0 Cardiogenic shock; J96.01 Acute respiratory failure with hypoxia; K72.01 Acute and subacute hepatic failure with coma; E87.2 Acidosis; I95.9 Hypotension, unspecified; R40.2112 Coma scale, eyes open, never, at arrival to emergency department; R40.2212 Coma scale, best verbal response, none, at arrival to emergency department; G93.1 Anoxic brain damage, not elsewhere classified; F32.9 Major depressive disorder, single episode, unspecified; F41.9 Anxiety disorder, unspecified; E78.5 Hyperlipidemia, unspecified; I10 Essential (primary) hypertension; M79.7 Fibromyalgia; Z88.8 Allergy status to other drugs, medicaments and biological substances; Z91.011 Allergy to milk products; Z91.048 Other nonmedicinal substance allergy status; K21.9 Gastro-esophageal reflux disease without esophagitis; K58.9 Irritable bowel syndrome, unspecified; M19.90 Unspecified osteoarthritis, unspecified site; G89.29 Other chronic pain; M54.9 Dorsalgia, unspecified; Z91.5 Personal history of self-harm; Z81.1 Family history of alcohol abuse and dependence; T43.621A Poisoning by amphetamines, accidental (unintentional), initial encounter; Z81.8 Family history of other mental and behavioral disorders; F10.129 Alcohol abuse with intoxication, unspecified; F17.210 Nicotine dependence, cigarettes, uncomplicated; G40.909 Epilepsy, unspecified, not intractable, without status epilepticus; E03.9 Hypothyroidism, unspecified; B19.20 Unspecified viral hepatitis C without hepatic coma; F14.10 Cocaine abuse, uncomplicated; F11.10 Opioid abuse, uncomplicated; R00.1 Bradycardia, unspecified; Z66 Do not resuscitate; Y92.009 Unspecified place in unspecified non-institutional (private) residence as the place of occurrence of the external cause; Z91.14 Patient's other noncompliance with medication regimen
CPT/HCPCS: 36415; 36600; 70450; 71010; 72125; 76700; 80048; 80053; 80076; 80177; 80307; 80320; 80329; 81003; 82140; 82550; 82803; 83050; 83605; 83735; 84100; 84443; 85025; 85384; 85610; 87641; 93005; 93306; 94002; 94003; 94640; 94760; 95819; A9270-GY; C8929; G0480; J0171; J0330; J0461; J1250; J1610; J1644; J1720; J2060; J2310; J2543; J2704; J3370; J3411; J7060